=== PATIENT | female | born 1950 | race Caucasian/White ===

== ENCOUNTER 2016-09-09 22:26 | Inpatient (IN) ==
--- NOTE | 2016-09-09 22:48 | Emergency Department Note ---
START Narrative - START START: I examined this patient and my medical decision-making was reviewed with the BUS AND TROLLEY INSPECTING DISPATCHER/PA/Advanced Practice Nurse/Resident Physician. I agree with the documented findings, disposition and treatment plan as described except to the extent set forth below. ED attending note: Patient seen with emergency medicine resident Dr. Gregory. Please see a copy of his note for details of the H&P, evaluation, management and disposition of this patient. We independently had [id number] contact with the patient Briefly: 66-year-old female by EMS for altered mental status. Prior CVA with left-sided deficits. Per EMS on July the patient was reported to be "talking out of her head". She has some slurred speech but family is not here is unclear that dysarthria is baseline from prior CVA. Patient will get a CT scan lab work EKG. Disposition pending. Patient stable.
[2016-09-09 23:00] LABS: Basophils % 0.7 %; Hematocrit 39.5 % (35.3-44.9); Hemoglobin 12.6 g/dL (11.5-15.4); Immature Granulocytes % 0.7 % (0-4); Lymphocytes # 0.6 K/mcL (0.6-4.6); Lymphocytes % 13.6 %; Mean Corpuscular HGB Conc 31.9 g/dL (31.6-35.5); Mean Corpuscular Hemoglobin 28.7 pg (28.0-33.3); Mean Platelet Volume 9.9 fL (9.4-12.4); Monocytes # 0.6 K/mcL (0.0-1.3); Monocytes % 13.4 %; Neutrophils # 2.9 K/mcL (1.6-8.9); Platelet Count 215 K/mcL (140-400); Red Blood Count 4.39 M/mcL (3.82-4.97); Red Cell Distribution Width 13.4 % (11.5-14.5); Segmented Neutrophils % 71.6 %
[2016-09-09 23:09] LABS: INR 1.3; Prothrombin Time 14.2 Seconds (9.4-12.1)
[2016-09-09 23:15] LABS: Alanine Aminotransferase 8 Units/L (0-55); Albumin 3.1 g/dL (3.5-5.0); Albumin/Globulin Ratio 0.9 (1.1-2.2); Alkaline Phosphatase 59 Units/L (38-126); Aspartate Amino Transferase 22 Units/L (5-34); BUN/Creatinine Ratio 10 (6-26); Bilirubin,Direct 0.1 mg/dL (0.0-0.5); Bilirubin,Indirect 0.4 mg/dL (0.0-1.2); Bilirubin,Total 0.5 mg/dL (0.2-1.2); Blood Urea Nitrogen 30 mg/dL (7-20); Calcium 9.5 mg/dL (8.6-10.8); Carbon Dioxide 14 mEq/L (19-29); Chloride 104 mEq/L (98-109); Ethanol < 10 mg/dL (0-10); Globulin 3.6 g/dL (2.4-3.5); Glucose 104 mg/dL (70-99); Osmolality,Calculated 292 (280-300); Potassium 3.7 mEq/L (3.5-4.5); Sodium 138 mEq/L (136-145); Total Protein 6.7 g/dL (6.0-8.3); eGFR For African Americans 19 (> 60); eGFR For Non-African Americans 16 (> 60)
[2016-09-09] MEDS ORDERED: 0.9 % Sodium Chloride 1,000 ML IV ONE (23:26)
[2016-09-10] MEDS ORDERED: Vancomycin 1,000 MG in D5% in Water 250 ML IV ONE (00:02)
[2016-09-10] MEDS ORDERED: Piperacillin/Tazobactam 3.375 GM in D5% in Water (Mini-Bag+) 100 ML IVPB ONE (00:02)
--- NOTE | 2016-09-10 00:17 | Emergency Department Note ---
Disposition Clinical Impression: Pneumonia Qualifiers: Pneumonia type: due to unspecified organism Laterality: unspecified laterality Lung location: unspecified part of lung Qualified Code(s): J18.9 - Pneumonia, unspecified organism Disposition: Admitted As Inpatient Condition: Fair Altered Mental Status HPI - General Chief Complaint: ED Altered Mental Status Stated Complaint: AMS Source: EMS Limitations: altered mental status Nursing Notes Reviewed: Yes Vital Signs Reviewed: Yes - History of Present Illness HPI Narrative: Patient here for evaluation of altered mental status. Patient sent in for "talking out of her head". Patient smells of urine on exam. Patient able to give her name and that she is in the hospital however she has had a previous left-sided stroke that has left her with left-sided deficits as well as speech deficits. - Related Data Home Medications Medication Instructions Recorded Confirmed Albuterol Sulfate [Albuterol 2 puff IH Q4HR PRN 08/22/16 08/22/16 Inhaler] Alprazolam [Xanax 0.5 MG Tablet] 0.5 mg PO TID PRN 08/22/16 08/22/16 Aspirin [Lo-Dose Aspirin EC] 81 mg PO DAILY 08/22/16 08/22/16 Diclofenac Sodium [Voltaren] 1 appl TP TID PRN 08/22/16 08/22/16 Docusate [Colace] 100 mg PO BID PRN 08/22/16 08/22/16 Gabapentin [Neurontin] 300 mg PO HS 08/22/16 08/22/16 Omeprazole [PriLOSEC] 40 mg PO DAILY 08/22/16 08/22/16 OxyCODONE ER (12 HR) [OxyCONTIN] 5 mg PO Q12HR PRN 08/22/16 08/22/16 Venlafaxine HCl 100 mg PO BID 08/22/16 08/22/16 Previous Rx's Medication Instructions Recorded Lidocaine Patch [Lidoderm 5% patch] 1 each TP DAILY #10 adh..patch 08/25/16 Sennosides/Docusate Sodium [Senna 2 each PO BID #60 tablet 08/25/16 Plus] Allergies Allergy/AdvReac Type Severity Reaction Status Date / Time No Known Allergies Allergy Verified 06/22/16 02:12 Limitations: ROS unobtainable due to patients medical condition Past Medical History - Past Medical History Medical history: Reports: COPD, CVA, fibromyalgia, other Psychiatric history: Reports: anxiety, depression, panic disorder - Social History Smoking Status: Current every day smoker Smokeless Tobacco Status: No Alcohol use: Reports: none Drug use: Reports: none Physical Exam - General Limitations: altered mental status General appearance: other - Head Head exam: atraumatic, normocephalic - Eye Eye exam: Present: normal appearance - ENT ENT exam: normal exam, mucous membranes dry - Neck Neck exam: Present: normal inspection - Chest Chest inspection: Present: normal inspection, symmetric chest wall rise. Absent : tenderness - Respiratory Respiratory exam: Present: other (Rhonchi diffuse.). Absent: respiratory distress - Cardiovascular Cardiovascular exam: Present: normal rhythm, tachycardia - Abdominal Exam Abdominal exam: Present: soft, Non-Tender - Extremities Exam Extremities exam: Present: normal inspection, other (Left-sided deficits consistent with previous stroke) - Back Exam Back exam: Present: normal inspection - Neurological Exam Neurological exam: Present: motor sensory deficit (Left-sided deficits) Course - Reevaluation(s) Reevaluation #1: Patient has low blood pressures. Patient mentating has been unchanged however she continues to have tachycardia patient's 18-gauge IV in the right upper extremity is going slow due to her dropping complaint with keeping her arm straight. A second IV was attempted as well as blood work including a lactate however due to the patient's poor access needle was obtained. Verbal consent obtained for central venous catheter. Central venous catheter placed per procedure note. - Consultations Consultation #1: Discussed with hospitalist. Dr. WILKINSON accepts. Consultation #2: Sign out given to medicine resident. Vital Signs Temperature 98.9 F 09/09/16 22:27 Pulse Rate 117 09/09/16 22:27 Respiratory Rate 26 09/09/16 22:27 Blood Pressure 103/96 09/09/16 22:27 O2 Sat by Pulse Oximetry 87 L 09/09/16 22:27 Temperature 98.9 F 09/09/16 22:27 Pulse Rate 131 09/10/16 03:13 Respiratory Rate 12 09/10/16 03:13 Blood Pressure 120/40 09/10/16 03:13 O2 Sat by Pulse Oximetry 99 09/10/16 03:13 Oxygen Delivery Oxygen Delivery Ventilator Procedures - Central Line Placement Right IJ Central Line Inserted*: Yes Central Line Insertion: emergent Consent Obtained: verbal consent Procedural Pause: verify patient name and date of , timeout performed per policy, kalyan and assess the site, assemble equipment and verify supplies, perform hand hygiene Patient Placed on Monitor/Pulse Ox: Yes During the Procedure: clinician is wearing sterile gloves, cap, mask,& gown during insertion, sterile field and sterile technique are maintained, patient's face is covered with drape or mask and wearing a cap, everyone in room is wearing a mask Central Line Prep: Chlorhexidine scrub Prep the Procedure Site: apply chloraprep to the skin using a back and forth scrubbing motion, apply chloraprep for 30 seconds (upper body), 1-2 min ( femoral sites), allow prep to dry, drape the patient with a full body drape Local Anesthetic: lidocaine 1% Ultrasound Used for Placement: Yes Central Line Lumen Inserted: triple Post Procedure: sutured in place, good blood return, all ports aspirated, flushed, capped, sterile dressing applied, guide wire removed and visualized, dressing is dated Post Procedure X-Ray: tip of catheter in good position, no pneumothorax seen Patient Tolerated Procedure: well Complications: none - Intubation Time out performed: Yes sedative: Etomidate Mg Given: 20 paralytic: Rocuronium Mg Given: 100 Laryngoscope: fiber optic video scope ET Tube Size: 7.5 ET Tube Uncuffed: No Tube Secured Depth (cm): 22 Tube Secured Location: lips Tube Placement Confirmation: visualized tube passing through cords, equal breath sounds bilaterally, no breath sounds over epigastrium, confirmation by capnometry Patient Tolerated Procedure: well Intubation Complications: none Altered Mental Status - Medical Records Medical records reviewed: Yes I reviewed the patient's medical records. - Lab Data Lab results reviewed: Yes I reviewed the patient's lab results. Result diagrams: 09/09/16 22:51 09/09/16 22:51 Lab Results 09/09/16 09/09/16 09/09/16 Range/Units 22:37 22:51 22:51 WBC 4.1 L (4.3-11.1) K/mcL RBC 4.39 (3.82-4.97) M/mcL Hgb 12.6 (11.5-15.4) g/dL Hct 39.5 (35.3-44.9) % MCV 90.0 (83.0-100.0) fL MCH 28.7 (28.0-33.3) pg MCHC 31.9 (31.6-35.5) g/dL RDW 13.4 (11.5-14.5) % Plt Count 215 (140-400) K/mcL MPV 9.9 (9.4-12.4) fL Immature Gran % 0.7 (0-4) % Seg Neutrophils % 71.6 % Lymphocytes % 13.6 % Monocytes % 13.4 % Eosinophils % 0.0 % Basophils % 0.7 % Neutrophils # 2.9 (1.6-8.9) K/mcL Lymphocytes # 0.6 (0.6-4.6) K/mcL Monocytes # 0.6 (0.0-1.3) K/mcL Eosinophils # 0.0 (0.0-0.6) K/mcL Basophils # 0.0 (0.0-0.2) K/mcL PT 14.2 H (9.4-12.1) Seconds INR 1.3 Sodium (136-145) mEq/L Potassium (3.5-4.5) mEq/L Chloride (98-109) mEq/L Carbon Dioxide (19-29) mEq/L BUN (7-20) mg/dL Creatinine (0.57-1.11) mg/dL Est GFR ( Amer) (> 60) Est GFR (Non-Af Amer) (> 60) BUN/Creatinine Ratio (6-26) Glucose (70-99) mg/dL POC Glucose 103 H (58-89) Calculated Osmolality (280-300) Calcium (8.6-10.8) mg/dL Total Bilirubin (0.2-1.2) mg/dL Direct Bilirubin (0.0-0.5) mg/dL Indirect Bilirubin (0.0-1.2) mg/dL AST (5-34) Units/L ALT (0-55) Units/L Alkaline Phosphatase (38-126) Units/L Troponin I (0-0.03) ng/mL Serum Total Protein (6.0-8.3) g/dL Albumin (3.5-5.0) g/dL Globulin (2.4-3.5) g/dL Albumin/Globulin Ratio (1.1-2.2) Ethyl Alcohol (0-10) mg/dL 09/09/16 09/09/16 Range/Units 22:51 22:51 WBC (4.3-11.1) K/mcL RBC (3.82-4.97) M/mcL Hgb (11.5-15.4) g/dL Hct (35.3-44.9) % MCV (83.0-100.0) fL MCH (28.0-33.3) pg MCHC (31.6-35.5) g/dL RDW (11.5-14.5) % Plt Count (140-400) K/mcL MPV (9.4-12.4) fL Immature Gran % (0-4) % Seg Neutrophils % % Lymphocytes % % Monocytes % % Eosinophils % % Basophils % % Neutrophils # (1.6-8.9) K/mcL Lymphocytes # (0.6-4.6) K/mcL Monocytes # (0.0-1.3) K/mcL Eosinophils # (0.0-0.6) K/mcL Basophils # (0.0-0.2) K/mcL PT (9.4-12.1) Seconds INR Sodium 138 (136-145) mEq/L Potassium 3.7 (3.5-4.5) mEq/L Chloride 104 (98-109) mEq/L Carbon Dioxide 14 L (19-29) mEq/L BUN 30 H (7-20) mg/dL Creatinine 3.01 H (0.57-1.11) mg/dL Est GFR ( Amer) 19 L (> 60) Est GFR (Non-Af Amer) 16 L (> 60) BUN/Creatinine Ratio 10 (6-26) Glucose 104 H (70-99) mg/dL POC Glucose (58-89) Calculated Osmolality 292 (280-300) Calcium 9.5 (8.6-10.8) mg/dL Total Bilirubin 0.5 (0.2-1.2) mg/dL Direct Bilirubin 0.1 (0.0-0.5) mg/dL Indirect Bilirubin 0.4 (0.0-1.2) mg/dL AST 22 (5-34) Units/L ALT 8 (0-55) Units/L Alkaline Phosphatase 59 (38-126) Units/L Troponin I 0.04 H* (0-0.03) ng/mL Serum Total Protein 6.7 (6.0-8.3) g/dL Albumin 3.1 L (3.5-5.0) g/dL Globulin 3.6 H (2.4-3.5) g/dL Albumin/Globulin Ratio 0.9 L (1.1-2.2) Ethyl Alcohol < 10 (0-10) mg/dL - Radiology Data Radiology results reviewed: Yes I reviewed the patient's radiology results. - EKG Data EKG attestation: Yes I reviewed and interpreted this EKG. EKG results narrative: EKG shows sinus tachycardia with nonspecific ST segment and T-wave changes. Patient has T-wave inversion and mild T-wave depression in the anterior leads. T-wave flattening and inversions consistent with 08/22/16. TPA Checklist - LKW: 3-4.5 hrs Add. Contraindications Patient/family understanding: The patient/family members have been counseled and understood the risk, benefit , and alternatives of treatment.
[2016-09-10] MEDS ORDERED: 0.9 % Sodium Chloride 1,000 ML IV ONE (00:41)
[2016-09-10] MEDS ORDERED: 0.9 % Sodium Chloride 1,000 ML ONE (00:41)
[2016-09-10] MEDS ORDERED: Levofloxacin 750 MG/150 ML 750 MG/150 ML BAG IVPB SCH (01:00)
--- NOTE | 2016-09-10 01:32 | Internal Med History&Physical ---
Date of Encounter: 09/10/16 Time of Encounter: 01:30 Assessment and Plan (1) Severe sepsis Current visit: Yes Status: Acute The patient meets SIRS criteria with tachycardia and tachypnea. Source is pneumonia. Severe sepsis with lactate of 4.3 and evidence of renal injury with creatinine of 3.01 when the patient had normal renal function at her baseline. 2L fluid given in the ED. Blood cultures drawn. Additional liter of fluid ordered and maintenance fluid at 150ml/hr after that. Timed repeat lactic acid at 4AM. Patient was started on levofloxacin by the ED, which has been discontinued. Azithromycin and Zosyn for antibiotic coverage. The patient was reassessed in the ED and found to be declining, she was started on Levophed, then intubated by the emergency department staff and moved to the ICU. (2) Altered mental status Current visit: Yes Status: Acute Secondary to infection and severe sepsis. See plan above. Qualifiers: Altered mental status type: unspecified Qualified Code(s): R41.82 - Altered mental status, unspecified (3) Pneumonia Current visit: Yes Status: Acute Patient was intubated. Continue Azithromycin and Zosyn. Possible aspiration pneumonia with chest XR demonstrating findings suspicious for right mid to lower lung pneumonia and patient's dysarthria, unknown if patient has dysphagia. Consideration for speech therapy consult when the patient is extubated. Qualifiers: Pneumonia type: due to unspecified organism Laterality: right Lung location: middle lobe of lung Qualified Code(s): J18.9 - Pneumonia, unspecified organism (4) COPD (chronic obstructive pulmonary disease) Current visit: No Status: Chronic In acute exacerbation with hypoxia secondary to pneumonia. Likely bacterial pneumonia. The patient in intubated and on antibiotics. Qualifiers: COPD type: COPD with acute exacerbation Qualified Code(s): J44.1 - Chronic obstructive pulmonary disease with (acute) exacerbation (5) Acute kidney injury Current visit: No Status: Resolved Secondary to severe sepsis. Patient has been given 2L fluid with an additional liter ordered and maintenance fluids of 125ml/hr. Continue to monitor. (6) DVT prophylaxis Current visit: Yes Status: Acute Heparin SQ Q8hr (7) History of CVA (cerebrovascular accident) Current visit: Yes Status: Acute CT of the head shows a stable exam with no acute intracranial abnormality. Residual left sided weakness and disarthria from previous infarct. Internal Medicine - H&P: HPI Chief complaint: altered mental status Admitted From: Emergency Dept Plans for Post Hospital Care: Home History of present illness: Ms. Brower is a 66 year old female with PMH of previous CVA, COPD, fibromyalgia, anxiety, depression, and panic disorder who presented to the emergency department for AMS. This patient lives at home with family and has had a recent hospitalization at the end of July that was for a fall and possible fractures. Her history of CVA has left her with residual left sided weakness and causes her to have frequent falls. Family members called today due to the patient appearing altered and not herself. Family members were not present to obtain additional history from. The patient herself is very limited in the questions she is able to answer. In the emergency department the patient was given 2L of fluids as she was hypotensive at 62/35, her pressure responded to fluids and lida to 91/42 and a central line was placed due to poor peripheral access. The patient was becoming hypoxic on nasal canula at 87% with 6L and was subsequently put on a nonrebreather mask with response to 92%. After central line placement the patient began to decline again and was started on Levophed with response in her blood pressure to 104/65. Heat CT did not show any acute findings and chest XR demonstrated findings suspicious for right mid to lower lung pneumonia. The patient was able to state her name and that she was at [facility], but she did not know what day it was. She had some dysarthria presumed to be from her previous CVA. Past Med Surg Social Fam HX - Past Medical History Medical history: COPD, CVA, fibromyalgia, other Psychiatric history: anxiety, depression, panic disorder - Past Surgical History Surgical History: non-contributory - Social History Smoking Status: Current every day smoker Smokeless Tobacco Status: No Alcohol use: none Drug use: none - Family History Mother Living Status: Still Living Father Living Status: Internal Medicine - H&P: Meds Albuterol Sulfate [Albuterol Inhaler] 2 puff IH Q4HR PRN 08/22/16 [History] Alprazolam [Xanax 0.5 MG Tablet] 0.5 mg PO TID PRN 08/22/16 [History] Aspirin [Lo-Dose Aspirin EC] 81 mg PO DAILY 08/22/16 [History] Diclofenac Sodium [Voltaren] 1 appl TP TID PRN 08/22/16 [History] Docusate [Colace] 100 mg PO BID PRN 08/22/16 [History] Gabapentin [Neurontin] 300 mg PO HS 08/22/16 [History] Omeprazole [PriLOSEC] 40 mg PO DAILY 08/22/16 [History] OxyCODONE ER (12 HR) [OxyCONTIN] 5 mg PO Q12HR PRN 08/22/16 [History] Venlafaxine HCl 100 mg PO BID 08/22/16 [History] Lidocaine Patch [Lidoderm 5% patch] 1 each TP DAILY #10 adh..patch 08/25/16 [Rx] Sennosides/Docusate Sodium [Senna Plus] 2 each PO BID #60 tablet 08/25/16 [Rx] Allergies No Known Allergies Allergy (Verified 06/22/16 02:12) ROS unobtainable: due to mental status All Systems PM: A 10-system review of systems was performed and is negative for pertinent findings except as documented above in the HPI. - Constitutional Vitals: Temp Pulse Resp BP Pulse Ox 98.9 F 110 20 62/35 87 L 09/09/16 22:27 09/10/16 00:19 09/10/16 00:19 09/10/16 00:19 09/10/16 00:19 General appearance: Present: A&O X 2 (To person and place), severe distress - Head Head exam: Present: atraumatic, normocephalic - Eye Eye exam: Present: PERRL, conjuntiva pink, sclera anicteric Pupils: Present: PERRL - Neck Neck exam general surgery: Present: supple, trachea midline. Absent: lymphadenopathy Additional comments: Central line in place on the right. - Respiratory Respiratory exam: Present: rales (profound), rhonchi, tachypnea. Absent: accessory muscle use, wheezes - Cardiovascular Cardiovascular exam: Present: +S1, +S2, tachycardia. Absent: diastolic murmur, gallop, rubs, systolic murmur - GI/Abdominal GI/Abdominal exam: Present: normal bowel sounds, soft, no peritoneal signs. Absent: distended, tenderness - Extremities Exam Extremities exam: Present: warm, radial pulses palpable and symetrical. Absent : calf tenderness, cyanotic, pedal edema - Neurological Exam Neurological exam: Present: alert, CN II-XII intact, speech deficit (dysarthria) . Absent: facial droop Additional comments: The patient has 0/5 strength in the left upper extremity and 3/5 strength in the left lower extremity. Strength is 5/5 in the right upper and right lower extremities. - Skin Skin exam: Present: dry, intact Internal Med - H&P Results - Labs CBC & Chem 7: 09/09/16 22:51 09/09/16 22:51 - Attending Attestation I examined this patient and my medical decision-making was reviewed with the TOLL RELIEF OPERATOR/PA/Advanced Practice Nurse/Resident Physician. I agree with the documented findings, disposition and treatment plan as described except to the extent set forth below.
[2016-09-10 01:45] LABS: Bilirubin,Urine Moderate (Negative); Blood,Urine Small (Negative); Clarity,Urine Turbid (Clear); Glucose,Urine (UA) Normal (Normal); Ketones,Urine Trace mg/dL (Negative); Leukocyte Esterase,Urine Large (Negative); Nitrite,Urine Negative (Negative); Protein,Urine 100 mg/dL (Neg-Trace); Specific Gravity,Urine 1.023 (1.010-1.025); Urobilinogen,Urine Normal (Normal)
[2016-09-10 01:47] LABS: Squamous Epithelial Cell,Urine Many per lpf (None-Few); WBC,Urine TNTC per hpf (0-3)
[2016-09-10 01:50] LABS: Color,Urine Amber (Yellow)
[2016-09-10 01:51] LABS: Amphetamine Screen,Urine Negative ng/mL (Cutoff=1000); Barbiturate Screen,Urine Negative ng/mL (Cutoff=200); Benzodiazepines Screen,Urine Positive ng/mL (Cutoff=200); Cannabinoid Screen,Urine Negative ng/mL (Cutoff = 50); Cocaine Screen,Urine Negative ng/mL (Cutoff= 300); Opiate Screen,Urine Negative ng/mL (Cutoff=300); Phencyclidine Screen,Urine Negative ng/mL (Cutoff=25)
[2016-09-10 01:59] LABS: Bacteria,Urine Moderate per hpf (None-Few); Hyaline Casts,Urine None Seen per lpf (None-Few); Mucus,Urine Moderate (Few); Renal Epithelial Cells,Urine Few per hpf (None-Few); Yeast,Urine Many per hpf (None Seen)
[2016-09-10] MEDS ORDERED: Norepinephrine 4 MG in D5% in Water 250 ML IVC SCH (02:00)
[2016-09-10] MEDS ORDERED: Naloxone 0.4 MG/ML INJ IVP PRN (02:32)
[2016-09-10] MEDS ORDERED: 0.9 % Sodium Chloride 1,000 ML IVC ONE (02:32)
[2016-09-10] MEDS ORDERED: ALPRAZolam 0.5 MG TABLET PO PRN (02:34)
[2016-09-10] MEDS ORDERED: 0.9 % Sodium Chloride 1,000 ML IVC SCH (02:45)
[2016-09-10] MEDS ORDERED: Propofol 500 MG/50 ML INFUS..BTL ONE (02:48)
[2016-09-10] MEDS: 0.9 % Sodium Chloride 1,000 ML IVC SCH ×4 (04:42→21:24)
[2016-09-10] MEDS: Azithromycin 500 MG in D5% in Water 250 ML IVPB SCH (04:45)
[2016-09-10] MEDS ORDERED: Phenylephrine 10 MG in D5% in Water 250 ML IVC SCH (06:15)
[2016-09-10 06:57] LABS: ABG Base Excess -13.3 mEq/L (-2.0 to 3.0); ABG HCO3 12.9 mEQ/L (21-27); ABG Oxygen Saturation 91 % (95-98); ABG PCO2 30 mmHg (35-45); ABG PH 7.24 pH Units (7.32-7.45); ABG PO2 73 mmHg (85-104); ABG TCO2 13.8 mEq/L (20-26); Blood Gas FiO2 100 %
[2016-09-10] MEDS ORDERED: 0.9 % Sodium Chloride 500 ML ONE (07:03)
[2016-09-10] MEDS: *HR* Heparin 5,000 UNIT/ML VIAL SQ SCH ×3 (07:22→22:02)
[2016-09-10] MEDS ORDERED: Clindamycin 600 MG/50 ML 600 MG/50 ML IV.SOLN IVPB SCH (08:00)
[2016-09-10] MEDS ORDERED: *HR* Etomidate 20 MG/10 ML AMPUL IVP ONE (08:07)
[2016-09-10] MEDS ORDERED: *HR* Rocuronium Bromide 100 MG/10 ML VIAL IVC ONE (08:07)
[2016-09-10] MEDS: Vasopressin 20 UNIT in 0.9 % Sodium Chloride 50 ML IVC SCH ×2 (08:12→15:36)
[2016-09-10] MEDS: Phenylephrine 50 MG in D5% in Water 250 ML IVC SCH (08:36)
[2016-09-10] MEDS ORDERED: *HR* Vecuronium 10 MG VIAL IVP ONE (09:12)
[2016-09-10] MEDS ORDERED: *HR* Vecuronium 10 MG VIAL ONE (09:18)
[2016-09-10] MEDS: Norepinephrine 8 MG in D5% in Water 250 ML IVC SCH ×3 (09:34→13:47)
[2016-09-10] MEDS: Pantoprazole 40 MG VIAL IVP SCH (09:50)
[2016-09-10] MEDS: Chlorhexidine Rinse 15 ML MOUTHWASH MM SCH ×2 (09:50→19:38)
[2016-09-10] MEDS: FentaNYL (PF) 1,000 MCG in 0.9 % Sodium Chloride 80 ML IVC SCH (09:51)
[2016-09-10] MEDS ORDERED: Piperacillin/Tazobactam 3.375 GM in D5% in Water (Mini-Bag+) 100 ML IVPB SCH (10:00)
--- NOTE | 2016-09-10 10:01 | Pulmonology Consult Note ---
Addendum entered and electronically signed by Donn Torres DO 11:07: A/P addition: Acute Respiratory Distress Syndrome. Continue per plan in Septic Shock and Acute Respiratory Failure plans. Addendum entered and electronically signed by Kenji Mckeon MD 09/11/16 07:30: The patient was seen and examined with the house staff on 09/10/16. I agree with the resident note with the following addendum: 1. Acute respiratory failure 2. Septic shock 3. Acute renal failure 4. Pneumonia 5. ARDS 66-year-old white female with a medical history significant for prior stroke, COPD, depression, and fibromyalgia who presents with acute respiratory failure due to ARDS and septic shock due to pneumonia. ARDS may be due influenza or aspiration event (family reported witnessed episode of aspirating vomit). We have had a very difficult time with oxygenation. Continue full vent support with high PEEP and low tidal volume strategy (goal of 6 mL/kg of ideal body weight tidal volumes). We have initiated continuous paralytics. No pronator bed available and patient has been too unstable for transfer to a facility with pronator bed capability. Septic shock secondary to pneumonia. She is influenza type B positive. This may be pneumonia secondary to influenze +/- bacerial superinfection and aspiration. She has been adequately volume resuscitated. Titrate vasopressors for a goal mean arterial pressure of 65 mmHg. I have added vasopressin and stress dose steroids. Continue Zosyn for coverage of pneumonia. Given he severity of her illness and the concern for superimposed bacerial infection, I have given her a 1 time dose of Vancomycin, which can be continued if MRSA nasal probe and sputum cultures are positive for MRSA. Follow cultures. Trend lactate. Acute renal failure due to ATN/hypoperfusion from septic shock. She has been anuric since arrival. No current indications for hemodialysis, however if she does not respond to a challenge with IV sodium bicarbonate, she may need dialysis for acidosis. Impending volume overload is also of concern I have consult nephrology for further evaluation. I discussed with the family at bedside. She is a DNR CCA. Overall prognosis guarded. Original Note: Date of Encounter: 09/10/16 Time of Encounter: 09:55 Assessment and Plan (1) Septic shock Current Visit: Yes Status: Acute Patient with tachycardia, tachypnea, lactate of 3.3, Cr 3.01, and hypotension despite continuous pressors and adequate fluid resuscitation. Likely secondary to pneumonia and influenza positive. Cultures sent. Continue with pressors and stress dose steroids. Continue with antibiotics. (2) Acute respiratory failure with hypoxia Current Visit: Yes Status: Acute Likely secondary to pneumonia secondary to influenza infection over bacterial infection in the setting of history of COPD. Continue per plan in assessment above. (3) Acute kidney injury Current Visit: Yes Status: Acute Cr of 3.01. Patient has not had output of urine. LIZ likely due to hypoperfusion from septic shock. Continue fluids. Nephrology consulted. (4) Altered mental status Current Visit: Yes Status: Acute Patient presented with altered mental status likely secondary to acute respiratory failure and septic shock. Head CT negative for acute intracranial abnormalities. Continue per plan in assessments above. Qualifiers: Altered mental status type: unspecified Qualified Code(s): R41.82 - Altered mental status, unspecified (5) DVT prophylaxis Current Visit: Yes Status: Acute heparin for dvt ppx History of Present Illness Consult date: 09/10/16 Requesting physician: Donnie Leija Reason for consult: other (acute hypoxic resp failure, lobar pna, ventilator management) Chief complaint: Altered mental status History of present illness: Ms. Brower is a 66 year old female with medical history including COPD, previous CVA with residual left sided weakness, fibromyalgia, anxiety, and depression who presented to the ED for AMS per family members. In the ED patient was hypotensive and was therefore given bolus of fluids and central line placed due to poor peripheral access. Patient was also hypoxic on nasal cannula and placed on nonrebreather mask. Patient continued to be hypoxic and with a declining bp, therefore patient was intubated. Head CT was negative for acute intracranial abnormalities and CXR revealed findings suspicious for right mid to lower lung pneumonia. Patient was admitted to the ICU for management of ventilator settings, acute respiratory failure, and lobar pneumonia. Past Med Surg Social Fam HX - Past Medical History Medical history: COPD, CVA (residual L weakness), fibromyalgia Psychiatric history: anxiety, depression, panic disorder - Past Surgical History Surgical History: non-contributory - Social History Smoking Status: Current every day smoker Smokeless Tobacco Status: No Alcohol use: none Drug use: none - Family History Mother Living Status: Still Living Father Living Status: Medications and Allergies Albuterol Sulfate [Albuterol Inhaler] 2 puff IH Q4HR PRN 08/22/16 [History] Alprazolam [Xanax 0.5 MG Tablet] 0.5 mg PO TID PRN 08/22/16 [History] Aspirin [Lo-Dose Aspirin EC] 81 mg PO DAILY 08/22/16 [History] Diclofenac Sodium [Voltaren] 1 appl TP TID PRN 08/22/16 [History] Docusate [Colace] 100 mg PO BID PRN 08/22/16 [History] Gabapentin [Neurontin] 300 mg PO HS 08/22/16 [History] Omeprazole [PriLOSEC] 40 mg PO DAILY 08/22/16 [History] OxyCODONE ER (12 HR) [OxyCONTIN] 5 mg PO Q12HR PRN 08/22/16 [History] Venlafaxine HCl 100 mg PO BID 08/22/16 [History] Lidocaine Patch [Lidoderm 5% patch] 1 each TP DAILY #10 adh..patch 08/25/16 [Rx] Sennosides/Docusate Sodium [Senna Plus] 2 each PO BID #60 tablet 08/25/16 [Rx] Ergocalciferol (VITAMIN D2) [Vitamin D2] 50,000 unit PO QWEEK 09/10/16 [History] Allergies No Known Allergies Allergy (Verified 06/22/16 02:12) ROS unobtainable: due to endotracheal tube, due to mental status All Systems: A 10-system review of systems was performed and is negative for pertinent findings except as documented above in the HPI. Physical Examination Vital Signs: Vital Signs, Last 4 Hours Temp Pulse Resp BP Pulse Ox 09/10/16 09:00 108 26 94/49 85 L 09/10/16 08:00 106 26 70/58 92 L 09/10/16 07:30 98.8 F 09/10/16 07:05 108 09/10/16 07:00 110 27 80/51 92 L 09/10/16 06:37 23 84/65 90 L 09/10/16 06:00 116 24 81/54 86 L General appearance: other (intubated, minimally arousable) Eyes: nonicteric Neck: supple Effort: normal Inspection: normal Auscultation: bilateral: clear Cardiovascular: other (sinus tachycardia) Gastrointestinal: normoactive bowel sounds Integumentary: normal Extremities: no cyanosis Musculoskeletal: no deformities non-focal exam, pupils equal and round, unable to assess due to mental status Ventilator Settings Ventilator Settings: Ventilator Settings, Last 8 Hours Ventilator Mode VC+ Ventilator Mode VC+ Ventilator Mode VC+ Ventilator Mode A/C Ventilator Mode A/C Ventilator Tidal Volume 500 Setting Ventilator Tidal Volume 500 Setting Ventilator Tidal Volume 650 Setting Ventilator Tidal Volume 650 Setting Ventilator Tidal Volume 650 Setting Ventilator Tidal Volume 550 Setting Ventilator Tidal Volume 500 Setting Ventilator Respiratory Rate 12 Setting Ventilator Respiratory Rate 12 Setting Ventilator Respiratory Rate 12 Setting Ventilator Respiratory Rate 12 Setting Ventilator Respiratory Rate 12 Setting Ventilator Respiratory Rate 12 Setting Ventilator Respiratory Rate 12 Setting Actual Respiratory Rate 26 Actual Respiratory Rate 26 Actual Respiratory Rate 27 Actual Respiratory Rate 23 Actual Respiratory Rate 24 Actual Respiratory Rate 22 Positive End Expiratory 10 Pressure Positive End Expiratory 8 Pressure Positive End Expiratory 5 Pressure Positive End Expiratory 3 Pressure Positive End Expiratory 5 Pressure Positive End Expiratory 12 Pressure Positive End Expiratory 5 Pressure Peak Inspiratory Airway 21 Pressure Peak Inspiratory Airway 21 Pressure Peak Inspiratory Airway 24 Pressure Peak Inspiratory Airway 23 Pressure Peak Inspiratory Airway 23 Pressure Peak Inspiratory Airway 20 Pressure Results - Laboratory Findings CBC and BMP: 09/09/16 22:51 09/10/16 11:15 ABG ABG pH 7.24 pH Units (7.32-7.45) L 09/10/16 06:45 ABG pCO2 30 mmHg (35-45) L 09/10/16 06:45 ABG pO2 73 mmHg (85-104) L 09/10/16 06:45 ABG O2 Saturation 91 % (95-98) L 09/10/16 06:45 PT/INR, D-dimer PT 14.2 Seconds (9.4-12.1) H 09/09/16 22:51 Abnormal lab findings: Abnormal lab results WBC 4.1 K/mcL (4.3-11.1) L 09/09/16 22:51 PT 14.2 Seconds (9.4-12.1) H 09/09/16 22:51 ABG pH 7.24 pH Units (7.32-7.45) L 09/10/16 06:45 ABG pCO2 30 mmHg (35-45) L 09/10/16 06:45 ABG pO2 73 mmHg (85-104) L 09/10/16 06:45 ABG HCO3 12.9 mEQ/L (21-27) L 09/10/16 06:45 ABG Total CO2 13.8 mEq/L (20-26) L 09/10/16 06:45 ABG O2 Saturation 91 % (95-98) L 09/10/16 06:45 ABG Base Excess -13.3 mEq/L (-2.0 to 3.0) L 09/10/16 06:45 Carbon Dioxide 14 mEq/L (19-29) L 09/09/16 22:51 BUN 30 mg/dL (7-20) H 09/09/16 22:51 Creatinine 3.01 mg/dL (0.57-1.11) H 09/09/16 22:51 Est GFR ( Amer) 19 (> 60) L 09/09/16 22:51 Est GFR (Non-Af Amer) 16 (> 60) L 09/09/16 22:51 Glucose 104 mg/dL (70-99) H 09/09/16 22:51 POC Glucose 148 (58-89) H 09/10/16 05:54 Lactic Acid 3.3 mmol/L (0.5-2.2) H 09/10/16 04:52 Troponin I 0.05 ng/mL (0-0.03) H* 09/10/16 06:14 Albumin 3.1 g/dL (3.5-5.0) L 09/09/16 22:51 Globulin 3.6 g/dL (2.4-3.5) H 09/09/16 22:51 Albumin/Globulin Ratio 0.9 (1.1-2.2) L 09/09/16 22:51 Urine Color Milagros (Yellow) A 09/10/16 01:35 Urine Clarity Turbid (Clear) A 09/10/16 01:35 Urine Protein 100 mg/dL (Neg-Trace) H 09/10/16 01:35 Urine Ketones Trace mg/dL (Negative) H 09/10/16 01:35 Urine Blood Small (Negative) H 09/10/16 01:35 Urine Bilirubin Moderate (Negative) H 09/10/16 01:35 Ur Leukocyte Esterase Large (Negative) H 09/10/16 01:35 Urine Microscopic RBC 3-5 per hpf (0-3) H 09/10/16 01:35 Urine Microscopic WBC TNTC per hpf (0-3) H 09/10/16 01:35 Ur Squamous Epith Cells Many per lpf (None-Few) H 09/10/16 01:35 Urine Bacteria Moderate per hpf (None-Few) H 09/10/16 01:35 Urine Mucus Moderate (Few) H 09/10/16 01:35 Urine Yeast Many per hpf (None Seen) H 09/10/16 01:35 Ur Culture Indicated? YES (NO) A 09/10/16 01:35 U Benzodiazepines Scrn Positive ng/mL (Nhyazn=507) H 09/10/16 01:35 - Clinical Findings Intake & Output: Intake & Output 09/09/16 09/10/16 09/10/16 23:59 07:59 15:59 Intake Total 1935 / 3935 470 / 470 Output Total 400 / 400 Balance 1535 / 3535 470 / 470 Weight 78.2 kg Consult Discharge Plan - Plan Referrals: NO,PCP [Non-Partnered Physician] -
[2016-09-10] MEDS ORDERED: Dextrose Gel 15 GM PO PRN ×2 (11:02)
[2016-09-10] MEDS ORDERED: D5% in Water 1,000 ML IV PRN (11:02)
[2016-09-10] MEDS ORDERED: *HR* Dextrose 50 % in Water (Syg) 50 ML SYRINGE IVP PRN (11:02)
[2016-09-10 11:44] LABS: Albumin 2.3 g/dL (3.5-5.0); Albumin/Globulin Ratio 0.9 (1.1-2.2); Bilirubin,Total 0.4 mg/dL (0.2-1.2); Calcium 6.9 mg/dL (8.6-10.8); Globulin 2.5 g/dL (2.4-3.5); Phosphorous 3.5 mg/dL (2.3-4.7); Potassium 3.1 mEq/L (3.5-4.5); Total Protein 4.8 g/dL (6.0-8.3)
[2016-09-10] MEDS: Atracurium 250 MG in 0.9 % Sodium Chloride 225 ML IVC SCH ×2 (12:00→12:34)
[2016-09-10] MEDS ORDERED: Lacri-Lube 3.5 GM TUBE BOTH EYES SCH (12:00)
[2016-09-10] MEDS: Hydrocortisone Sodium Succ 100 MG/2 ML VIAL IVP SCH ×2 (12:23→16:10)
[2016-09-10] MEDS: Insulin LISPRO 300 UNITS/3 ML VIAL SQ SCH ×2 (12:24→17:00)
[2016-09-10] MEDS: Piperacillin/Tazobactam 3.375 GM in D5% in Water (Mini-Bag+) 100 ML IVPB SCH (13:02)
--- NOTE | 2016-09-10 13:24 | Electrocardiograph Report ---
[facility] Test Date: 2016-09-09 Pat Name: Le Brower Department: 102 Room: 10 Gender: F [employer] Insurance Agent: [facility] : 1950 Requested By: Samuel Gregory Order Number: [id number] Reading MD: Rashaad Pradhan MD Measurements Intervals [place] Rate: 118 P: 65 LA: 171 QRS: 3 QRSD: 69 T: 76 QT: 366 QTc: 436 Interpretive Statements SINUS TACHYCARDIA ANTEROLATERAL ISCHEMIA Electronically Signed On 09-10-16 13:22:54 EST by Rashaad Pradhan MD
[2016-09-10] MEDS: Sodium Bicarbonate 150 MEQ in D5% in Water 1,000 ML IVC SCH ×2 (14:01→21:24)
--- NOTE | 2016-09-10 14:22 | Procedure Note ---
Date of procedure: 09/10/16 Pre-op diagnosis: shock Post-op diagnosis: same Procedure: Informed consent was assumed secondary to emergent nature of procedure and unable to contact POA. A timeout was performed prior to the procedure. The area of the left radial artery was cleaned and draped. The site was anesthetized with subcutaneous lidocaine. Utilizing ultrasound guidance the artery was cannulated and a wire was passed into the artery. The catheter was advanced into the artery and sutured into place. Good waveform noted on the monitor. A sterile dressing was placed. No untoward events. Anesthesia: local Surgeon: Kenji Mckeon Estimated blood loss (cc): 0 (minimal) Condition: critical
[2016-09-10 14:53] LABS: ABG PCO2 50 mmHg (35-45); ABG PH 7.04 pH Units (7.32-7.45)
[2016-09-10 14:54] LABS: ABG Base Excess -16.9 mEq/L (-2.0 to 3.0); ABG HCO3 13.5 mEQ/L (21-27); ABG Oxygen Saturation 84 % (95-98); ABG PO2 71 mmHg (85-104); Blood Gas FiO2 100 %
[2016-09-10 14:54] LABS: ABG PH 7.05 pH Units (7.32-7.45)
[2016-09-10 14:55] LABS: ABG Base Excess -17.8 mEq/L (-2.0 to 3.0); ABG HCO3 12.2 mEQ/L (21-27); ABG Oxygen Saturation 71 % (95-98); ABG PCO2 44 mmHg (35-45); ABG PO2 55 mmHg (85-104); ABG TCO2 13.6 mEq/L (20-26); Blood Gas FiO2 100 %
--- NOTE | 2016-09-10 14:57 | Nephrology Consult Note ---
Date of Encounter: 09/10/16 Time of Encounter: 13:45 Assessment and Plan (1) Septic shock Current Visit: Yes Status: Acute Patient with tachycardia, tachypnea, lactic acidosis, and hypotension requiring multiple vasopressors. Chest x-ray with right middle lobe pneumonia concerning for aspiration. Patient needs criteria for healthcare associated pneumonia as she was hospitalized at the end of July 2016. Patient also positive for influenza B virus. She is currently requiring multiple vasopressors along with significant ventilatory support. Blood cultures pending, urine culture negative at this time. (2) Acute kidney injury Current Visit: Yes Status: Acute Nonoliguric acute kidney injury in the setting of septic shock. Initial serum creatinine 3.01, current serum creatinine 2.72. Improvement in serum creatinine likely dilutional as patient is 6L +. Urine osmolality, urine sodium, creatinine kinase, uric acid, serum osmolality, and ultrasound of the kidneys have been ordered. Patient is requiring multiple vasopressors to maintain even a marginal blood pressure at this time. Patient at this time is too critically ill even for gentle ultrafiltration. We will continue to monitor patient's urine output as well as repeat labs and discuss with family their wishes for possible dialysis if patients condition slightly improves. (3) HCAP (healthcare-associated pneumonia) Current Visit: Yes Status: Acute Patient with a right middle lobe pneumonia concerning for aspiration as the patient apparently vomited prior to arrival in the emergency department. She does meet criteria for healthcare associated pneumonia as she was hospitalized within the past 90 days. Current antibiotics per ICU team, Zosyn and azithromycin. (4) Acute respiratory failure with hypoxia Current Visit: Yes Status: Acute Patient currently intubated. Vent settings: VC+/400/30/100%/12 Management per ICU team. Consider ultrafiltration if patient's clinical status improves. (5) Metabolic acidosis Current Visit: Yes Status: Acute Patient initially presented with a high anion gap metabolic acidosis in the setting of lactic acidosis. She has since been started on a bicarbonate drip with closure of her anion gap. Continue to trend lactic acid. Possible roly tomorrow if patient's clinical picture improves. (6) Influenza B Current Visit: Yes Status: Acute Tamiflu given per ICU team. (7) Hypokalemia Current Visit: Yes Status: Acute Replete along with magnesium and calcium. (8) Hypomagnesemia Current Visit: Yes Status: Acute (9) Hypocalcemia Current Visit: Yes Status: Acute (10) Renal atrophy, right Current Visit: Yes Status: Acute CT abdomen and pelvis without contrast from May 2016 revealed asymmetric atrophy of the right kidney with cortical defects, and or chronic reflux ischemia or infection. Also noted were multiple calcifications in the right renal parenchyma measuring up to 3 mm as well as 13 mm calcification in the left lower pole. Complete retroperitoneal ultrasound ordered to evaluate kidneys and bladder. History of Present Illness - Reason for Consult Consult date: 09/10/16 Acute Kidney Injury, metabolic acidosis Requesting physician: Kenji Mckeon - History of Present Illness Ms. Brower is a 66-year-old female with a past medical history of COPD, previous CVA with residual left-sided hemiparesis, anxiety, depression, and fibromyalgia who presented to the emergency department with altered mental status per family report. Patient was found to be hypotensive and hypoxic despite IV fluid resuscitation and oxygen therapy and was subsequently intubated and a central venous catheter was placed. Workup in the emergency department revealed a chest x-ray with right middle lobe pneumonia. Negative head CT for acute pathology. Urinalysis with positive leuk esterases and many bacteria consistent with urinary tract infection. Elevated serum creatinine at 3.01. Initial lactic acid of 4.3. Patient has had 150 mL of urine since admission last night. She is requiring multiple vasopressors, sedation, and paralytic at this time. Nephrology has been consulted for acute kidney injury and metabolic acidosis. Patient is unable to provide any medical history due to currently being intubated and sedated. Past Med Surg Social Fam HX - Past Medical History Medical history: COPD, CVA (residual L weakness), fibromyalgia Psychiatric history: anxiety, depression, panic disorder - Past Surgical History Surgical History: non-contributory - Social History Smoking Status: Current every day smoker Smokeless Tobacco Status: No Alcohol use: none Drug use: none - Family History Mother Living Status: Still Living Father Living Status: Medications and Allergies Albuterol Sulfate [Albuterol Inhaler] 2 puff IH Q4HR PRN 08/22/16 [History] Alprazolam [Xanax 0.5 MG Tablet] 0.5 mg PO TID PRN 08/22/16 [History] Aspirin [Lo-Dose Aspirin EC] 81 mg PO DAILY 08/22/16 [History] Diclofenac Sodium [Voltaren] 1 appl TP TID PRN 08/22/16 [History] Docusate [Colace] 100 mg PO BID PRN 08/22/16 [History] Gabapentin [Neurontin] 300 mg PO HS 08/22/16 [History] Omeprazole [PriLOSEC] 40 mg PO DAILY 08/22/16 [History] OxyCODONE ER (12 HR) [OxyCONTIN] 5 mg PO Q12HR PRN 08/22/16 [History] Venlafaxine HCl 100 mg PO BID 08/22/16 [History] Lidocaine Patch [Lidoderm 5% patch] 1 each TP DAILY #10 adh..patch 08/25/16 [Rx] Sennosides/Docusate Sodium [Senna Plus] 2 each PO BID #60 tablet 08/25/16 [Rx] Ergocalciferol (VITAMIN D2) [Vitamin D2] 50,000 unit PO QWEEK 09/10/16 [History] Allergies No Known Allergies Allergy (Verified 06/22/16 02:12) Review of Systems ROS unobtainable: due to endotracheal tube, due to mental status Exam - Vital Signs Vital signs: Initial Vital Signs Temp Pulse Resp BP Pulse Ox 98.9 F 117 26 103/96 87 L 09/09/16 22:27 09/09/16 22:27 09/09/16 22:27 09/09/16 22:27 09/09/16 22:27 Vital Signs - Last 8 Hours Temp Pulse Resp BP Pulse Ox 09/10/16 14:00 113 30 89/55 92 L 09/10/16 13:00 111 30 87/56 88 L 09/10/16 12:00 112 30 103/58 97 09/10/16 11:00 112 30 103/48 94 L 09/10/16 10:00 115 30 110/52 85 L 09/10/16 09:00 108 26 94/49 85 L 09/10/16 08:00 106 26 70/58 92 L 09/10/16 07:30 98.8 F 09/10/16 07:05 108 09/10/16 07:00 110 27 80/51 92 L Intake and Output 09/09/16 09/10/16 09/10/16 23:59 07:59 15:59 Intake Total 1935 / 3935 2706 / 2706 Output Total 400 / 400 Balance 1535 / 3535 2706 / 2706 Intake: IV Fluids 193 / 1935 2706 / 2706 Vancocin 1,000 MG In 250 / 250 Dextrose 5% 250 ML @ 167 mls/hr IV ONCE ONE Rx#: [id number] 0.9 % Sodium Chloride 1, 1000 / 1000 1468 / 1468 000 ML @ 150 mls/hr IVC . Q6H40M [facility] Rx#:[id number] FentaNYL (PF) 1,000 MCG 17 / 17 In 0.9 % Sodium Chloride 80 ML @ 10 MCG/HR 1 mls/ hr IVC CONT [facility] Rx#: [id number] Levophed 8 MG In Dextrose 14 / 14 826 / 826 5% 250 ML @ 2 MCG/MIN 3. 87 mls/hr IVC .CONT [facility] Rx#:[id number] Phenylephrine 50 MG In 101 / 101 260 / 260 Dextrose 5% 250 ML @ 40 MCG/MIN 12.24 mls/hr IVC CONT [facility] Rx#:[id number] Diprivan 1,000 mg In 100 70 / 70 85 / 85 ml @ 5 MCG/KG/MIN 2.381 mls/hr IVC .Q24H [facility] Rx#: [id number] Zithromax 500 mg In 250 / 250 Dextrose 5% 250 ML @ 252 mls/hr IVPB Q24H [facility] Rx#: [id number] Cleocin 600 MG/50 ML 600 50 / 50 mg In 50 ml @ 50 mls/hr IVPB Q8HR [facility] Rx#: [id number] Levaquin 750mg/150 mL 750 150 / 150 mg In 150 ml @ 100 mls/ hr IVPB DAILY [facility] Rx#: [id number] Zosyn 3.375 GM In 100 / 100 Dextrose 5% (Minibag+) 100 ML 100 ML @ 100 mls/ hr IVPB ONCE ONE Rx#: [id number] Output: Catheter 150 / 150 Gastric Drainage 250 / 250 Other: Weight 78.2 kg Patient Weight 09/10/16 23:59 Weight 78.2 kg - General Appearance Exam: General: Patient is currently intubated, sedated, and paralyzed HEENT: Normocephalic atraumatic, pupils are equal round and reactive to light and accommodation, anicteric sclera, tympanic membrane is intact, nares is patent, mucous membranes moist, throat is not injected, no JVD, trachea is midline Cardiovascular: Tachycardic with regular rhythm without murmur Respiratory: Lungs are diminished bilaterally with trace right-sided rhonchi Abdomen: Soft, nondistended, positive bowel sounds in all 4 quadrants Extremities: Warm, dry, no edema Neuro: Unable to assess secondary to patient's mental status Results - Lab Results 09/09/16 22:51 09/10/16 11:15 Most recent lab results ABG pH 7.04 pH Units (7.32-7.45) L* D 09/10/16 09:27 ABG pCO2 50 mmHg (35-45) H D 09/10/16 09:27 ABG pO2 71 mmHg (85-104) L 09/10/16 09:27 ABG HCO3 13.5 mEQ/L (21-27) L 09/10/16 09:27 ABG O2 Saturation 84 % (95-98) L 09/10/16 09:27 Calcium 6.9 mg/dL (8.6-10.8) L D 09/10/16 11:15 Phosphorus 3.5 mg/dL (2.3-4.7) 09/10/16 11:15 Magnesium 1.0 mg/dL (1.6-2.6) L 09/10/16 11:15 Consult Discharge Plan - Plan Referrals: NO,PCP [Non-Partnered Physician] -
[2016-09-10 15:36] LABS: ABG HCO3 16.7 mEQ/L (21-27); ABG Oxygen Saturation 77 % (95-98); ABG PCO2 49 mmHg (35-45); ABG PO2 55 mmHg (85-104); ABG TCO2 18.2 mEq/L (20-26)
[2016-09-10] MEDS ORDERED: Vancomycin 1,000 MG in D5% in Water 250 ML IVPB ONE (15:38)
[2016-09-10 15:39] LABS: ABG PH 7.14 pH Units (7.32-7.45); Blood Gas FiO2 100 %
[2016-09-10] MEDS ORDERED: Magnesium Sulfate 1 GM in D5% in Water 100 ML IVPB ONE (15:45)
[2016-09-10] MEDS ORDERED: Calcium Gluconate 2,000 MG in D5% in Water 100 ML IVPB ONE (15:45)
[2016-09-10] MEDS ORDERED: Potassium Chloride Elixir 20 MEQ/15 ML UDC GTUBE ONE (15:45)
--- NOTE | 2016-09-10 15:46 | Event Note ---
Date of Encounter: 09/10/16 Time of Encounter: 15:39 The patient was seen and examined with the house staff. Care was discussed on multidisciplinary rounds. Full resident note is pending. This will serve as my addendum to the resident note. 1. Acute respiratory failure 2. Septic shock 3. Acute renal failure 4. Pneumonia 5. ARDS 66-year-old white female with a medical history significant for prior stroke, COPD, depression, and fibromyalgia who presents with acute respiratory failure due to ARDS and septic shock due to pneumonia. ARDS may be due influenza or aspiration event (family reported witnessed episode of aspirating vomit). We have had a very difficult time with oxygenation. Continue full vent support with high PEEP and low tidal volume strategy (goal of 6 mL/kg of ideal body weight tidal volumes). We have initiated continuous paralytics. No pronator bed available and patient has been too unstable for transfer to a facility with pronator bed capability. Septic shock secondary to pneumonia. She is influenza type B positive. This may be pneumonia secondary to influenze +/- bacerial superinfection and aspiration. She has been adequately volume resuscitated. Titrate vasopressors for a goal mean arterial pressure of 65 mmHg. I have added vasopressin and stress dose steroids. Continue Zosyn for coverage of pneumonia. Given he severity of her illness and the concern for superimposed bacerial infection, I have given her a 1 time dose of Vancomycin, which can be continued if MRSA nasal probe and sputum cultures are positive for MRSA. Follow cultures. Trend lactate. Acute renal failure due to ATN/hypoperfusion from septic shock. She has been anuric since arrival. No current indications for hemodialysis, however if she does not respond to a challenge with IV sodium bicarbonate, she may need dialysis for acidosis. Impending volume overload is also of concern I have consult nephrology for further evaluation. I discussed with the family at bedside. She is a DNR CCA. Overall prognosis guarded.
[2016-09-10] MEDS: Norepinephrine 16 MG in D5% in Water 500 ML IVC SCH ×2 (16:15→21:07)
[2016-09-10] MEDS: Oseltamivir 6 MG/ML MLS PO SCH (16:24)
[2016-09-10 17:11] LABS: Uric Acid 7.5 mg/dL (2.6-6.0)
[2016-09-11] MEDS: Hydrocortisone Sodium Succ 100 MG/2 ML VIAL IVP SCH ×5 (00:05→22:39)
[2016-09-11] MEDS: Insulin LISPRO 300 UNITS/3 ML VIAL SQ SCH ×2 (00:06→05:42)
[2016-09-11] MEDS: Piperacillin/Tazobactam 3.375 GM in D5% in Water (Mini-Bag+) 100 ML IVPB SCH ×3 (02:08→20:09)
[2016-09-11] MEDS: Norepinephrine 16 MG in D5% in Water 500 ML IVC SCH ×4 (02:08→22:19)
[2016-09-11] MEDS: Vasopressin 20 UNIT in 0.9 % Sodium Chloride 50 ML IVC SCH ×2 (02:48→13:26)
[2016-09-11] MEDS: Azithromycin 500 MG in D5% in Water 250 ML IVPB SCH (02:51)
[2016-09-11] MEDS: 0.9 % Sodium Chloride 1,000 ML IVC SCH ×2 (04:13→07:51)
[2016-09-11 04:34] LABS: Hematocrit 30.9 % (35.3-44.9); Mean Corpuscular HGB Conc 33.7 g/dL (31.6-35.5); Mean Corpuscular Hemoglobin 29.4 pg (28.0-33.3); Mean Corpuscular Volume 87.3 fL (83.0-100.0); Mean Platelet Volume 10.1 fL (9.4-12.4); Platelet Count 116 K/mcL (140-400); Red Blood Count 3.54 M/mcL (3.82-4.97); Red Cell Distribution Width 13.9 % (11.5-14.5)
[2016-09-11 04:37] LABS: Hemoglobin 10.4 g/dL (11.5-15.4)
[2016-09-11 04:44] LABS: Ionized Calcium 0.81 mmol/L (1.15-1.35)
[2016-09-11 04:50] LABS: Calcium 6.3 mg/dL (8.6-10.8); Magnesium 0.9 mg/dL (1.6-2.6); Phosphorous 4.2 mg/dL (2.3-4.7); Potassium 3.7 mEq/L (3.5-4.5); Uric Acid 6.9 mg/dL (2.6-6.0)
[2016-09-11 05:00] LABS: Lymphocytes # 1.9 K/mcL (0.6-4.6); Monocytes # 0.8 K/mcL (0.0-1.3); Neutrophils # 7.6 K/mcL (1.6-8.9); Platelet Estimate Decreased (Normal)
[2016-09-11] MEDS: Sodium Bicarbonate 150 MEQ in D5% in Water 1,000 ML IVC SCH (05:30)
[2016-09-11] MEDS: *HR* Heparin 5,000 UNIT/ML VIAL SQ SCH ×3 (05:40→22:39)
[2016-09-11 06:45] LABS: ABG Base Excess -7.7 mEq/L (-2.0 to 3.0); ABG HCO3 20.1 mEQ/L (21-27); ABG Oxygen Saturation 90 % (95-98); ABG PCO2 49 mmHg (35-45); ABG PH 7.22 pH Units (7.32-7.45); ABG PO2 70 mmHg (85-104); ABG TCO2 21.6 mEq/L (20-26)
[2016-09-11 06:46] LABS: Blood Gas FiO2 100 %
[2016-09-11] MEDS: Phenylephrine 50 MG in D5% in Water 250 ML IVC SCH (06:49)
[2016-09-11] MEDS: Pantoprazole 40 MG VIAL IVP SCH (06:57)
[2016-09-11] MEDS: Chlorhexidine Rinse 15 ML MOUTHWASH MM SCH ×2 (06:57→20:09)
[2016-09-11] MEDS ORDERED: Magnesium Sulfate 2 GM in D5% in Water 100 ML IVPB ONE ×2 (07:13→15:36)
[2016-09-11] MEDS ORDERED: Calcium Gluconate 2,000 MG in D5% in Water 100 ML IVPB ONE ×2 (07:13→15:36)
--- NOTE | 2016-09-11 07:24 | Pulmonology Progress Note ---
Date of Encounter: 09/11/16 Time of Encounter: 07:22 Assessment and Plan (1) Acute respiratory failure with hypoxia Current Visit: Yes Status: Acute Secondary to pneumonia, influenza B infection with possible bacterial infection in setting of history of COPD. Cultures negative to date Continue zosyn d2. Vancomycin due to MRSA positive screening. Azithromycin disontinued. Patient on ventilator. PEEP of 12, FiO2 at 100%, will start to titrate down Continue with stress dose steroids. (2) Septic shock Current Visit: Yes Status: Acute Continue with pressors and plan in assessment above. (3) Acute kidney injury Current Visit: Yes Status: Acute Cr of 2.61, improved from 3.01 yesterday. Urine output 550mL. LIZ likely due to hypoperfusion from septic shock. Fluids held due to volume overload status. Nephrology on board, will initiate dialysis. (4) Acute respiratory distress syndrome Current Visit: Yes Status: Acute (5) Influenza B Current Visit: Yes Status: Acute Tamiflu started. (6) MRSA (methicillin resistant Staphylococcus aureus) carrier Current Visit: Yes Status: Acute Positive MRSA screening. Continue with Vancomycin until cultures return. To discontinue if cultures return MRSA negative. (7) Altered mental status Current Visit: Yes Status: Acute Secondary to acute respiratory failure and septic shock. Continue per assessments above. Qualifiers: Altered mental status type: unspecified Qualified Code(s): R41.82 - Altered mental status, unspecified (8) Hypocalcemia Current Visit: Yes Status: Acute Ionized calcium at 0.81, monitor and replete as needed. (9) Hypomagnesemia Current Visit: Yes Status: Acute Magnesium at 0.9, replete and monitor as needed. (10) Hyperglycemia Current Visit: Yes Status: Acute Persistently elevated blood glucose despite sliding scale. Insulin drip ordered. Hyperglycemia likely secondary to stress dose steroids and other fluids/meds. Will continue to monitor. (11) DVT prophylaxis Current Visit: Yes Status: Acute heparin for dvt ppx. Subjective Principal diagnosis: Acute Resp Failure, Septic shock, acute renal failure Interval history: Patient intubated and sedated. PEEP 12, FiO2 at 100% 1550 mL gastric drainage 550mL urine output no changes in patient status overnight, labs revealed significant electrolyte imbalances and fluid overload status on exam Objective PUL Vital signs: Last Vital Signs Temp 97.8 F 09/11/16 04:27 Pulse 101 09/11/16 07:00 Resp 30 09/11/16 07:00 BP 82/53 09/11/16 07:00 Pulse Ox 95 09/11/16 07:00 General appearance: other (intubated, sedated, no extremity movement when prompted, no eye opening) Eyes: nonicteric Effort: normal Auscultation: bilateral: diminished breath sounds, rales Cardiovascular: regular rate and rhythm Gastrointestinal: absent bowel sounds, soft, non-distended Integumentary: normal Extremities: cool, edema Musculoskeletal: no deformities non-focal exam, pupils equal and round Ventilator Settings Ventilator Settings: Ventilator Settings, Last 8 Hours Ventilator Mode A/C Ventilator Mode A/C Ventilator Mode A/C Ventilator Mode A/C Ventilator Mode A/C Ventilator Mode A/C Ventilator Mode A/C Ventilator Mode A/C Ventilator Mode A/C Ventilator Mode A/C Ventilator Mode A/C Ventilator Mode A/C Ventilator Tidal Volume 400 Setting Ventilator Tidal Volume 400 Setting Ventilator Tidal Volume 400 Setting Ventilator Tidal Volume 400 Setting Ventilator Tidal Volume 400 Setting Ventilator Tidal Volume 400 Setting Ventilator Tidal Volume 400 Setting Ventilator Tidal Volume 400 Setting Ventilator Tidal Volume 400 Setting Ventilator Tidal Volume 400 Setting Ventilator Tidal Volume 400 Setting Ventilator Tidal Volume 400 Setting Ventilator Respiratory Rate 30 Setting Ventilator Respiratory Rate 30 Setting Ventilator Respiratory Rate 30 Setting Ventilator Respiratory Rate 30 Setting Ventilator Respiratory Rate 30 Setting Ventilator Respiratory Rate 30 Setting Ventilator Respiratory Rate 30 Setting Ventilator Respiratory Rate 30 Setting Ventilator Respiratory Rate 30 Setting Ventilator Respiratory Rate 30 Setting Ventilator Respiratory Rate 30 Setting Ventilator Respiratory Rate 30 Setting Actual Respiratory Rate 30 Actual Respiratory Rate 30 Actual Respiratory Rate 30 Actual Respiratory Rate 30 Positive End Expiratory 12 Pressure Positive End Expiratory 12 Pressure Positive End Expiratory 12 Pressure Positive End Expiratory 12 Pressure Positive End Expiratory 12 Pressure Positive End Expiratory 12 Pressure Positive End Expiratory 12 Pressure Positive End Expiratory 12 Pressure Positive End Expiratory 12 Pressure Positive End Expiratory 12 Pressure Positive End Expiratory 12 Pressure Positive End Expiratory 12 Pressure Peak Inspiratory Airway 28 Pressure Peak Inspiratory Airway 28 Pressure Peak Inspiratory Airway 28 Pressure Peak Inspiratory Airway 27 Pressure Results - Laboratory Findings CBC and BMP: 09/11/16 04:17 09/11/16 04:17 ABG ABG pH 7.22 pH Units (7.32-7.45) L 09/11/16 04:49 ABG pCO2 49 mmHg (35-45) H 09/11/16 04:49 ABG pO2 70 mmHg (85-104) L 09/11/16 04:49 ABG O2 Saturation 90 % (95-98) L 09/11/16 04:49 PT/INR, D-dimer PT 14.2 Seconds (9.4-12.1) H 09/09/16 22:51 Abnormal lab findings: Abnormal lab results RBC 3.54 M/mcL (3.82-4.97) L 09/11/16 04:17 Hgb 10.4 g/dL (11.5-15.4) L D 09/11/16 04:17 Hct 30.9 % (35.3-44.9) L 09/11/16 04:17 Plt Count 116 K/mcL (140-400) L 09/11/16 04:17 Band Neutrophils % 14.0 % (0-4) H 09/11/16 04:17 Platelet Estimate Decreased (Normal) L 09/11/16 04:17 PT 14.2 Seconds (9.4-12.1) H 09/09/16 22:51 ABG pH 7.22 pH Units (7.32-7.45) L 09/11/16 04:49 ABG pCO2 49 mmHg (35-45) H 09/11/16 04:49 ABG pO2 70 mmHg (85-104) L 09/11/16 04:49 ABG HCO3 20.1 mEQ/L (21-27) L 09/11/16 04:49 ABG O2 Saturation 90 % (95-98) L 09/11/16 04:49 ABG Base Excess -7.7 mEq/L (-2.0 to 3.0) L 09/11/16 04:49 Sodium 125 mEq/L (136-145) L 09/11/16 04:17 Chloride 94 mEq/L (98-109) L 09/11/16 04:17 Carbon Dioxide 15 mEq/L (19-29) L 09/11/16 04:17 BUN 33 mg/dL (7-20) H 09/11/16 04:17 Creatinine 2.61 mg/dL (0.57-1.11) H 09/11/16 04:17 Est GFR ( Amer) 22 (> 60) L 09/11/16 04:17 Est GFR (Non-Af Amer) 18 (> 60) L 09/11/16 04:17 Glucose 283 mg/dL (70-99) H 09/11/16 04:17 POC Glucose 272 (58-89) H 09/11/16 05:42 Calculated Osmolality 278 (280-300) L 09/11/16 04:17 Lactic Acid 5.4 mmol/L (0.5-2.2) H* 09/11/16 03:05 Uric Acid 6.9 mg/dL (2.6-6.0) H 09/11/16 04:17 Calcium 6.3 mg/dL (8.6-10.8) L 09/11/16 04:17 Ionized Calcium 0.81 mmol/L (1.15-1.35) L 09/11/16 04:17 Magnesium 0.9 mg/dL (1.6-2.6) L 09/11/16 04:17 Creatine Kinase 484 Units/L (29-168) H 09/10/16 15:39 Troponin I 0.05 ng/mL (0-0.03) H* 09/10/16 06:14 Serum Total Protein 4.8 g/dL (6.0-8.3) L D 09/10/16 11:15 Albumin 2.3 g/dL (3.5-5.0) L D 09/10/16 11:15 Albumin/Globulin Ratio 0.9 (1.1-2.2) L 09/10/16 11:15 Urine Color Milagros (Yellow) A 09/10/16 01:35 Urine Clarity Turbid (Clear) A 09/10/16 01:35 Urine Protein 100 mg/dL (Neg-Trace) H 09/10/16 01:35 Urine Ketones Trace mg/dL (Negative) H 09/10/16 01:35 Urine Blood Small (Negative) H 09/10/16 01:35 Urine Bilirubin Moderate (Negative) H 09/10/16 01:35 Ur Leukocyte Esterase Large (Negative) H 09/10/16 01:35 Urine Microscopic RBC 3-5 per hpf (0-3) H 09/10/16 01:35 Urine Microscopic WBC TNTC per hpf (0-3) H 09/10/16 01:35 Ur Squamous Epith Cells Many per lpf (None-Few) H 09/10/16 01:35 Urine Bacteria Moderate per hpf (None-Few) H 09/10/16 01:35 Urine Mucus Moderate (Few) H 09/10/16 01:35 Urine Yeast Many per hpf (None Seen) H 09/10/16 01:35 Ur Culture Indicated? YES (NO) A 09/10/16 01:35 Urine Osmolality 292 mOsm/kg (300-1090) L 09/10/16 15:39 U Benzodiazepines Scrn Positive ng/mL (Bauusm=596) H 09/10/16 01:35 MRSA Surveillance Scrn Positive (Negative) A 09/10/16 14:18 - Microbiology Findings Microbiology Findings: Microbiology, Last 48 Hours 09/10/16 14:18 Influenza Types A,B Antigen (SUE) - Final Nasopharyngeal - Clinical Findings Intake & Output: Intake & Output 09/10/16 09/10/16 09/11/16 15:59 23:59 07:59 Intake Total 2909 / 2909 3343 / 3343 3952 / 3952 Output Total 50 / 50 1000 / 1000 350 / 350 Balance 2859 / 2859 2343 / 2343 3602 / 3602 Weight 78.2 kg 85.7 kg - VTE Documentation of Mechanical Device: Graduated compression elastic hosiery Consult Discharge Plan - Plan Referrals: NO,PCP [Non-Partnered Physician] -
[2016-09-11] MEDS: Oseltamivir 6 MG/ML MLS PO SCH (07:47)
[2016-09-11] MEDS: FentaNYL (PF) 1,000 MCG in 0.9 % Sodium Chloride 80 ML IVC SCH (09:03)
--- NOTE | 2016-09-11 09:09 | Nephrology Progress Note ---
Date of Encounter: 09/11/16 Time of Encounter: 06:30 - Assessment and Plan (1) Septic shock Current Visit: Yes Status: Acute Etiology healthcare associated pneumonia and influenza B. Patient presented with tachycardia, tachypnea, lactic acidosis, and hypotension requiring multiple vasopressors. Chest x-ray revealed right middle lobe pneumonia concerning for aspiration. Speaking with family today, they stated that the patient was vomiting and aspirated prior to presentation to the emergency department. Patient does meet criteria for healthcare associated pneumonia as she was hospitalized at the end of July. She continues to require multiple vasopressors along with significant ventilatory support. Blood and urine cultures remain negative. Antibiotics per ICU team. (2) Acute kidney injury Current Visit: Yes Status: Acute Oliguric acute kidney injury in the setting of septic shock and lactic acidosis. Slight improvement in the patient's serum creatinine overnight, but patient is 12L net positive with clinical signs of volume overload. Bicarbonate drip as well as IV fluids have been discontinued and the patient will be started on continuous renal replacement therapy. Right femoral temporary hemodialysis catheter placed under ultrasound guidance at the bedside. Patient's lactic acid climbing, 5.4 today. Continue to monitor closely. (3) HCAP (healthcare-associated pneumonia) Current Visit: Yes Status: Acute Patient with right middle lobe pneumonia concerning for aspiration after she vomited at home. Was hospitalized in the previous 90 days meeting requirements for healthcare associated pneumonia. Continue current antibiotic treatment per ICU team. (4) Acute respiratory failure with hypoxia Current Visit: Yes Status: Acute Patient remains intubated. Vent settings: VC+/400/30/100%/12 Management per ICU team. Initiation of continue renal replacement therapy today. (5) Metabolic acidosis Current Visit: Yes Status: Acute High anion gap metabolic acidosis in the setting of septic shock and lactic acidosis. Continue to trend lactic acid. CRRT initiated. (6) Influenza B Current Visit: Yes Status: Acute Tamiflu given (7) Hypomagnesemia Current Visit: Yes Status: Acute We will continue to monitor electrolytes closely with CRRT. Replete as needed. (8) Hypocalcemia Current Visit: Yes Status: Acute (9) Renal atrophy, right Current Visit: Yes Status: Chronic CT abdomen and pelvis without contrast from May 2016 revealed asymmetric atrophy of the right kidney with cortical defects, and or chronic reflux ischemia or infection. Also noted were multiple calcifications in the right renal parenchyma measuring up to 3 mm as well as a 13 mm calcification in the left lower pole. Retroperitoneal ultrasound revealed an atrophic lobular right kidney with multifocal areas of scarring. There is also increased echogenicity of the right kidney suggestive of medical renal disease. Stable 1.3 cm calcification in the left kidney either parenchymal or caliceal in origin. Subjective Principal diagnosis: Acute Resp Failure with Hypoxia Interval history: Patient seen and examined at the bedside. Patient remained on multiple pressor agents overnight to maintain adequate mean arterial pressure. Patient is 12 L net positive and will be started on Skylar today. Family has been contacted and gets consent for hemodialysis catheter placement and Skylar. Patient remains intubated, sedated, and paralyzed. Objective - Vital Signs Vital signs: Vital Signs Temp Pulse Resp BP Pulse Ox 09/11/16 08:11 30 96 09/11/16 08:00 94 30 103/55 97 09/11/16 07:15 110 09/11/16 07:00 101 30 82/53 95 09/11/16 06:01 30 97 09/11/16 06:00 97 30 103/61 96 09/11/16 05:00 99 30 97/61 97 09/11/16 04:27 97.8 F 09/11/16 04:20 99 09/11/16 04:00 101 30 79/55 98 09/11/16 03:00 102 30 99/61 95 09/11/16 02:17 30 95 09/11/16 02:00 101 30 119/67 94 L 09/11/16 01:00 105 30 115/67 94 L 09/11/16 00:28 30 94 L 09/11/16 00:16 98.9 F 09/11/16 00:00 106 30 100/66 94 L 09/10/16 23:00 107 30 86/65 93 L 09/10/16 22:25 30 100/66 94 L 09/10/16 22:00 109 30 86/70 93 L 09/10/16 21:00 107 30 80/65 92 L 09/10/16 20:53 30 86/65 92 L 09/10/16 20:00 98.2 F 107 30 80/62 92 L 09/10/16 19:00 106 30 91/66 94 L 09/10/16 18:00 106 30 110/63 96 09/10/16 17:20 30 87/55 94 L 09/10/16 17:00 101 30 87/55 95 09/10/16 16:00 107 30 94/59 92 L 09/10/16 15:18 98.6 F 09/10/16 15:00 110 30 80/54 92 L 09/10/16 14:00 113 30 89/55 92 L 09/10/16 13:00 111 30 87/56 88 L 09/10/16 12:00 112 30 103/58 97 09/10/16 11:00 112 30 103/48 94 L 09/10/16 10:00 115 30 110/52 85 L Intake and Output 09/10/16 09/11/16 09/11/16 23:59 07:59 15:59 Intake Total 3343 / 3343 4390 / 4390 635 / 635 Output Total 1000 / 1000 800 / 800 Balance 2343 / 2343 3590 / 3590 635 / 635 Intake: IV Fluids 2343 / 2343 4390 / 4390 635 / 635 0.9 % Sodium Chloride 1, 1554 / 1554 000 ML @ 150 mls/hr IVC . Q6H40M [facility] Rx#:[id number] Atracurium 250 MG In 0.9 24 / 24 135 / 135 % Sodium Chloride 225 ML @ 5 MCG/KG/MIN 23.46 mls/ hr IVC CONT [facility] Rx#: [id number] FentaNYL (PF) 1,000 MCG 48 / 48 3 / 3 In 0.9 % Sodium Chloride 80 ML @ 10 MCG/HR 1 mls/ hr IVC CONT [facility] Rx#: [id number] Levophed 8 MG In Dextrose 36 / 36 5% 250 ML @ 2 MCG/MIN 3. 87 mls/hr IVC .CONT [facility] Rx#:[id number] Levophed 16 MG In 516 / 516 1032 / 1032 Dextrose 5% 500 ML @ 2 MCG/MIN 3.87 mls/hr IVC . CONT [facility] Rx#:[id number] Phenylephrine 50 MG In 0 / 0 Dextrose 5% 250 ML @ 40 MCG/MIN 12.24 mls/hr IVC CONT [facility] Rx#:[id number] Diprivan 1,000 mg In 100 45 / 45 47 / 47 ml @ 5 MCG/KG/MIN 2.381 mls/hr IVC .Q24H [facility] Rx#: [id number] Sodium Bicarbonate 150 1150 / 1150 1150 / 1150 408 / 408 MEQ In Dextrose 5% 1,000 ML @ 150 mls/hr IVC . Q7H40M [facility] Rx#:[id number] Vasostrict 20 UNIT In 0.9 74 / 74 % Sodium Chloride 50 ML @ 0.03 UNITS/MIN 4.59 mls /hr IVC .Q11H7M [facility] Rx#: [id number] Zithromax 500 mg In 250 / 250 Dextrose 5% 250 ML @ 252 mls/hr IVPB Q24H [facility] Rx#: [id number] Calcium Gluconate 2,000 120 / 120 120 / 120 MG In Dextrose 5% 100 ML @ 220 mls/hr IVPB ONCE [facility] Rx#:[id number] Magnesium Sulfate 2 GM In 102 / 102 104 / 104 Dextrose 5% 100 ML @ 100 mls/hr IVPB ONCE ONE Rx# :[id number] Zosyn 3.375 GM In 100 / 100 100 / 100 Dextrose 5% (Minibag+) 100 ML 100 ML @ 25 mls/hr IVPB Q12H [facility] Rx#: [id number] Vancocin 1,000 MG In 250 / 250 Dextrose 5% 250 ML @ 167 mls/hr IVPB ONCE ONE Rx#: [id number] Free Water 1000 / 1000 Output: Catheter 100 / 100 400 / 400 Gastric Drainage 900 / 900 400 / 400 Other: Weight 85.7 kg Blood Glucose* 199 272 Patient Weight 09/11/16 23:59 Weight 85.7 kg - General Appearance Exam: General: Patient is currently intubated, sedated, and paralyzed HEENT: Normocephalic atraumatic, pupils are equal round and reactive to light and accommodation, tympanic membrane is intact, nares is patent, mucous membranes moist, no JVD, trachea is midline Cardiovascular: Tachycardic with regular rhythm without murmur Respiratory: Lungs are diminished bilaterally with trace rhonchi noted Abdomen: Soft, nondistended, positive bowel sounds in all 4 quadrants Extremities: Upper and lower extremity anasarca Neuro: Unable to assess secondary to patient's mental status - Lab 09/11/16 04:17 09/11/16 04:17 Most recent lab results ABG pH 7.22 pH Units (7.32-7.45) L 09/11/16 04:49 ABG pCO2 49 mmHg (35-45) H 09/11/16 04:49 ABG pO2 70 mmHg (85-104) L 09/11/16 04:49 ABG HCO3 20.1 mEQ/L (21-27) L 09/11/16 04:49 ABG O2 Saturation 90 % (95-98) L 09/11/16 04:49 Calcium 6.3 mg/dL (8.6-10.8) L 09/11/16 04:17 Phosphorus 4.2 mg/dL (2.3-4.7) 09/11/16 04:17 Magnesium 0.9 mg/dL (1.6-2.6) L 09/11/16 04:17 Urine Sodium 58.0 mEq/L 09/10/16 15:39 - VTE Documentation of Mechanical Device: Graduated compression elastic hosiery Consult Discharge Plan - Plan Referrals: NO,PCP [Non-Partnered Physician] -
[2016-09-11] MEDS ORDERED: Calcium Gluconate 1,000 MG in D5% in Water 100 ML IVPB PRN (10:35)
[2016-09-11] MEDS ORDERED: Calcium Gluconate 2,000 MG in D5% in Water 100 ML IVPB PRN (10:35)
[2016-09-11] MEDS ORDERED: *HR* Alteplase (Cathflo) 2 MG VIAL IVP PRN (10:35)
[2016-09-11] MEDS ORDERED: *HR* Heparin 5,000 UNIT/ML VIAL IV PRN (10:35)
[2016-09-11] MEDS ORDERED: 0.9 % Sodium Chloride 1,000 ML PRIME SCH (10:35)
--- NOTE | 2016-09-11 10:43 | Nephrology Procedure Note ---
Date of procedure: 09/11/16 Procedure Performed: femoral dialysis catheter Procedure: Procedure Medicine Tech: Pauline Goldberg DO Attending scientific laboratory supervisor: Guillaume Lala DO Consent: Obtained from the patient's power of banking attorney, son Jackson Archuleta Procedure summary: Bedside timeout was performed. The patient was prepped and draped in the usual sterile fashion using chlorhexidine scrub. One percent lidocaine was used to numb the right femoral region. The right femoral vein was accessed under ultrasound guidance using a finder needle and sheath. Venous blood was withdrawn and the sheath was advanced into the vein and the needle was withdrawn. A guidewire was advanced through the sheath. A small incision was made with a 10 blade scalpel and the sheath was exchanged for a dilator over the guidewire until appropriate dilation was obtained. The dilator was removed and a 15-[place] triple lumen temporary hemodialysis catheter was advanced over the guidewire, but unfortunately on the first attempt the guidewire was not able to be removed without excessive force. The guidewire along with the temporary dialysis catheter were removed together and pressure was held on the femoral vein for approximately 10 minutes. During the second attempt, the identical procedure was performed and the triple lumen temporary dialysis catheter was advanced over the guidewire and secured into place with sutures. At time of procedure completion, all ports aspirated and flushed properly. Complications: None Estimated blood loss: Minimal Condition: critical Disposition: ICU
[2016-09-11] MEDS ORDERED: Calcium Chloride 4,000 MG in 0.9 % Sodium Chloride 1,000 ML CRRT SCH (10:45)
[2016-09-11] MEDS ORDERED: PrismaSATE BGK 4/2.5 5,000 ML CRRT SCH ×2 (10:45)
[2016-09-11] MEDS ORDERED: *HR* Dextrose 50 % in Water (Syg) 50 ML SYRINGE IVP PRN (10:49)
[2016-09-11] MEDS ORDERED: Vancomycin 1,250 MG in D5% in Water 250 ML IVPB SCH (11:00)
[2016-09-11] MEDS ORDERED: Vancomycin 1 EACH in EMPTY BAG 1 EACH IVPB SCH (11:00)
[2016-09-11] MEDS ORDERED: Vancomycin 1,000 MG in D5% in Water 250 ML IVPB ONE (12:00)
[2016-09-11] MEDS: Atracurium 250 MG in 0.9 % Sodium Chloride 225 ML IVC SCH ×2 (13:13→14:21)
[2016-09-11] MEDS: Insulin Human Regular 100 UNIT in 0.9 % Sodium Chloride 100 ML IVC SCH ×2 (13:14→13:17)
--- NOTE | 2016-09-11 14:16 | Event Note ---
Date of Encounter: 09/11/16 Time of Encounter: 14:08 Notified by ICU staff that shortly after starting Skylar patients blood pressure drastically dropped and became hypoxic. Vasopressors were increased and patient was manually bagged. Skylar was stopped at that time. Unfortunately , it appears that she will not tolerate CVVHD. Patient is currently DNR CCA. Family discussion continues about plan of care.
[2016-09-11 15:33] LABS: Ionized Calcium 0.86 mmol/L (1.15-1.35)
[2016-09-11 15:34] LABS: Magnesium 1.3 mg/dL (1.6-2.6)
[2016-09-11 16:41] LABS: ABG Base Excess -9.6 mEq/L (-2.0 to 3.0); ABG Oxygen Saturation 62 % (95-98); ABG PCO2 45 mmHg (35-45); ABG PH 7.21 pH Units (7.32-7.45); ABG TCO2 19.4 mEq/L (20-26)
[2016-09-11 16:45] LABS: ABG PO2 40 mmHg (85-104)
[2016-09-11] MEDS ORDERED: Furosemide 40 MG/4 ML VIAL IVP ONE (17:03)
[2016-09-11] MEDS: Lacri-Lube 3.5 GM TUBE BOTH EYES PRN (20:09)
[2016-09-12] MEDS: Vasopressin 20 UNIT in 0.9 % Sodium Chloride 50 ML IVC SCH (00:46)
[2016-09-12] MEDS: Piperacillin/Tazobactam 3.375 GM in D5% in Water (Mini-Bag+) 100 ML IVPB SCH (03:37)
[2016-09-12] MEDS: Lacri-Lube 3.5 GM TUBE BOTH EYES PRN (03:55)
[2016-09-12 04:00] LABS: Nucleated Red Blood Cells 0.4 /100 WBC (0)
[2016-09-12 04:02] LABS: Hematocrit 32.7 % (35.3-44.9); Hemoglobin 10.7 g/dL (11.5-15.4); Mean Corpuscular HGB Conc 32.7 g/dL (31.6-35.5); Mean Corpuscular Hemoglobin 29.2 pg (28.0-33.3); Mean Corpuscular Volume 89.1 fL (83.0-100.0); Mean Platelet Volume 10.4 fL (9.4-12.4); Red Blood Count 3.67 M/mcL (3.82-4.97); Red Cell Distribution Width 13.9 % (11.5-14.5)
[2016-09-12 04:06] LABS: Ionized Calcium 0.93 mmol/L (1.15-1.35); Platelet Count 95 K/mcL (140-400)
[2016-09-12 04:13] LABS: Albumin/Globulin Ratio 0.6 (1.1-2.2); Calcium 7.2 mg/dL (8.6-10.8); Globulin 2.9 g/dL (2.4-3.5); Magnesium 1.8 mg/dL (1.6-2.6); Potassium 4.1 mEq/L (3.5-4.5); Total Protein 4.6 g/dL (6.0-8.3)
[2016-09-12 04:17] LABS: Albumin 1.7 g/dL (3.5-5.0); Bilirubin,Total 0.8 mg/dL (0.2-1.2); Phosphorous 7.8 mg/dL (2.3-4.7)
[2016-09-12 05:05] LABS: Lymphocytes # 0.9 K/mcL (0.6-4.6); Monocytes # 2.6 K/mcL (0.0-1.3); Neutrophils # 18.5 K/mcL (1.6-8.9)
[2016-09-12 05:06] LABS: Burr Cells 2+ (Not Present); Platelet Estimate Decreased (Normal)
[2016-09-12] MEDS: Norepinephrine 16 MG in D5% in Water 500 ML IVC SCH (05:08)
[2016-09-12] MEDS: FentaNYL (PF) 1,000 MCG in 0.9 % Sodium Chloride 80 ML IVC SCH (05:09)
[2016-09-12] MEDS: *HR* Heparin 5,000 UNIT/ML VIAL SQ SCH (05:51)
[2016-09-12] MEDS: Hydrocortisone Sodium Succ 100 MG/2 ML VIAL IVP SCH (05:51)
--- NOTE | 2016-09-12 08:13 | Pulmonology Progress Note ---
Date of Encounter: 09/12/16 Time of Encounter: 08:11 Assessment and Plan (1) Acute respiratory failure with hypoxia Current Visit: Yes Status: Acute Secondary to pneumonia, influenza B infection with possible bacterial infection in setting of history of COPD. Cultures negative to date. VBG results pH 7.05, pC2 60, pO2 89 and Oxyhemoglobin 92.0. Lactic acid of 7.4. Suggestive of inadequate uptake of nutrients despite continued efforts/interventions. Continue zosyn d3. Vancomycin d2 due to MRSA positive screening, awaiting sputum culture results. Patient on ventilator. PEEP of 10, FiO2 at 100%. Continue with stress dose steroids. Will discuss with family to discuss plan of care. (2) Septic shock Current Visit: Yes Status: Acute Continue with pressors to MAP 65 and plan in assessment above. (3) Acute kidney injury Current Visit: Yes Status: Acute Cr of 3.02, urine output at 2049. LIZ likely due to hypoperfusion from septic shock. Fluids held due to volume overload status. Nephrology on board, unable to tolerate dialysis. (4) Acute respiratory distress syndrome Current Visit: Yes Status: Acute (5) Influenza B Current Visit: Yes Status: Acute Continue Tamiflu (6) MRSA (methicillin resistant Staphylococcus aureus) carrier Current Visit: Yes Status: Acute Positive MRSA screening. Continue with Vancomycin until cultures return. To discontinue if cultures return MRSA negative. (7) Altered mental status Current Visit: Yes Status: Acute Secondary to acute respiratory failure and septic shock. Continue per assessments above. Qualifiers: Altered mental status type: unspecified Qualified Code(s): R41.82 - Altered mental status, unspecified (8) Hypocalcemia Current Visit: Yes Status: Acute Ionized calcium at 0.93, monitor and replete as needed. (9) Hypomagnesemia Current Visit: Yes Status: Acute Magnesium at 1.8, replete and monitor as needed. (10) Hyperglycemia Current Visit: Yes Status: Acute Overnight blood sugars dropping. Insulin drip stopped. Hyperglycemia likely secondary to stress dose steroids. Low glucose levels likely secondary to insulin drip and discontinuance f bicarb drip with D5 yesterday morning. Will continue to monitor. (11) DVT prophylaxis Current Visit: Yes Status: Acute heparin for dvt ppx. Subjective Principal diagnosis: Acute Resp Failure, Septic shock, acute renal failure Interval history: Patient intubated and sedated. PEEP 10, FiO2 at 100%. ART line on Left out overnight. 670 mL gastric drainage 2050mL urine output patient was unable to tolerate dialysis, labs reveal significant electrolyte imbalances and fluid overload status on exam. Objective PUL Vital signs: Last Vital Signs Temp 101.1 F H 09/12/16 08:09 Pulse 109 09/12/16 06:02 Resp 30 09/12/16 08:00 BP 116/73 09/12/16 08:00 Pulse Ox 93 L 09/12/16 08:00 General appearance: other (intubated and sedated, no eye movement or extremity movement when prompted.) Eyes: nonicteric Neck: supple Effort: normal Auscultation: bilateral: rales, rhonchi Cardiovascular: regular rate and rhythm Gastrointestinal: hypoactive bowel sounds, soft, non-distended Integumentary: other (mottled appearance on extremities) Extremities: cool, edema, other (pale, pulses very difficult to palpate) Musculoskeletal: no deformities non-focal exam Ventilator Settings Ventilator Settings: Ventilator Settings, Last 8 Hours Ventilator Mode VC+ Ventilator Mode VC+ Ventilator Mode VC+ Ventilator Mode VC+ Ventilator Mode VC+ Ventilator Mode VC+ Ventilator Mode VC+ Ventilator Mode VC+ Ventilator Mode VC+ Ventilator Mode VC+ Ventilator Tidal Volume 400 Setting Ventilator Tidal Volume 400 Setting Ventilator Tidal Volume 400 Setting Ventilator Tidal Volume 400 Setting Ventilator Tidal Volume 400 Setting Ventilator Tidal Volume 400 Setting Ventilator Tidal Volume 400 Setting Ventilator Tidal Volume 400 Setting Ventilator Tidal Volume 400 Setting Ventilator Tidal Volume 400 Setting Ventilator Respiratory Rate 30 Setting Ventilator Respiratory Rate 30 Setting Ventilator Respiratory Rate 30 Setting Ventilator Respiratory Rate 30 Setting Ventilator Respiratory Rate 30 Setting Ventilator Respiratory Rate 30 Setting Ventilator Respiratory Rate 30 Setting Ventilator Respiratory Rate 30 Setting Ventilator Respiratory Rate 30 Setting Ventilator Respiratory Rate 30 Setting Actual Respiratory Rate 30 Actual Respiratory Rate 30 Actual Respiratory Rate 30 Positive End Expiratory 10 Pressure Positive End Expiratory 10 Pressure Positive End Expiratory 10 Pressure Positive End Expiratory 10 Pressure Positive End Expiratory 10 Pressure Positive End Expiratory 10 Pressure Positive End Expiratory 10 Pressure Positive End Expiratory 10 Pressure Positive End Expiratory 10 Pressure Positive End Expiratory 10 Pressure Peak Inspiratory Airway 25 Pressure Peak Inspiratory Airway 24 Pressure Peak Inspiratory Airway 24 Pressure Results - Laboratory Findings CBC and BMP: 09/12/16 03:48 09/12/16 03:48 ABG ABG pH 7.21 pH Units (7.32-7.45) L 09/11/16 12:52 ABG pCO2 45 mmHg (35-45) 09/11/16 12:52 ABG pO2 40 mmHg (85-104) L* 09/11/16 12:52 ABG O2 Saturation 62 % (95-98) L 09/11/16 12:52 PT/INR, D-dimer PT 14.2 Seconds (9.4-12.1) H 09/09/16 22:51 Abnormal lab findings: Abnormal lab results WBC 22.0 K/mcL (4.3-11.1) H D 09/12/16 03:48 RBC 3.67 M/mcL (3.82-4.97) L 09/12/16 03:48 Hgb 10.7 g/dL (11.5-15.4) L 09/12/16 03:48 Hct 32.7 % (35.3-44.9) L 09/12/16 03:48 Plt Count 95 K/mcL (140-400) L 09/12/16 03:48 Band Neutrophils % 6.0 % (0-4) H 09/12/16 03:48 Neutrophils # 18.5 K/mcL (1.6-8.9) H 09/12/16 03:48 Monocytes # 2.6 K/mcL (0.0-1.3) H 09/12/16 03:48 Nucleated RBCs/100 WBC 0.4 /100 WBC (0) H 09/12/16 03:48 Platelet Estimate Decreased (Normal) L 09/12/16 03:48 Immature Plt Fraction 11.0 % (1.1-6.1) H 09/12/16 03:48 [place] Cells 2+ (Not Present) A 09/12/16 03:48 PT 14.2 Seconds (9.4-12.1) H 09/09/16 22:51 ABG pH 7.21 pH Units (7.32-7.45) L 09/11/16 12:52 ABG pO2 40 mmHg (85-104) L* 09/11/16 12:52 ABG HCO3 18.0 mEQ/L (21-27) L 09/11/16 12:52 ABG Total CO2 19.4 mEq/L (20-26) L 09/11/16 12:52 ABG O2 Saturation 62 % (95-98) L 09/11/16 12:52 ABG Base Excess -9.6 mEq/L (-2.0 to 3.0) L 09/11/16 12:52 Sodium 121 mEq/L (136-145) L 09/12/16 03:48 Chloride 90 mEq/L (98-109) L 09/12/16 03:48 Carbon Dioxide 12 mEq/L (19-29) L 09/12/16 03:48 BUN 35 mg/dL (7-20) H 09/12/16 03:48 Creatinine 3.02 mg/dL (0.57-1.11) H 09/12/16 03:48 Est GFR ( Amer) 19 (> 60) L 09/12/16 03:48 Est GFR (Non-Af Amer) 16 (> 60) L 09/12/16 03:48 Glucose 183 mg/dL (70-99) H 09/12/16 03:48 Calculated Osmolality 265 (280-300) L 09/12/16 03:48 Lactic Acid 5.4 mmol/L (0.5-2.2) H* 09/11/16 03:05 Uric Acid 6.9 mg/dL (2.6-6.0) H 09/11/16 04:17 Calcium 7.2 mg/dL (8.6-10.8) L 09/12/16 03:48 Ionized Calcium 0.93 mmol/L (1.15-1.35) L 09/12/16 03:48 Phosphorus 7.8 mg/dL (2.3-4.7) H D 09/12/16 03:48 AST 62 Units/L (5-34) H 09/12/16 03:48 Creatine Kinase 484 Units/L (29-168) H 09/10/16 15:39 Troponin I 0.05 ng/mL (0-0.03) H* 09/10/16 06:14 Serum Total Protein 4.6 g/dL (6.0-8.3) L 09/12/16 03:48 Albumin 1.7 g/dL (3.5-5.0) L D 09/12/16 03:48 Albumin/Globulin Ratio 0.6 (1.1-2.2) L 09/12/16 03:48 Urine Color Milag[place] (Yellow) A 09/10/16 01:35 Urine Clarity Turbid (Clear) A 09/10/16 01:35 Urine Protein 100 mg/dL (Neg-Trace) H 09/10/16 01:35 Urine Ketones Trace mg/dL (Negative) H 09/10/16 01:35 Urine Blood Small (Negative) H 09/10/16 01:35 Urine Bilirubin Moderate (Negative) H 09/10/16 01:35 Ur Leukocyte Esterase Large (Negative) H 09/10/16 01:35 Urine Microscopic RBC 3-5 per hpf (0-3) H 09/10/16 01:35 Urine Microscopic WBC TNTC per hpf (0-3) H 09/10/16 01:35 Ur Squamous Epith Cells Many per lpf (None-Few) H 09/10/16 01:35 Urine Bacteria Moderate per hpf (None-Few) H 09/10/16 01:35 Urine Mucus Moderate (Few) H 09/10/16 01:35 Urine Yeast Many per hpf (None Seen) H 09/10/16 01:35 Ur Culture Indicated? YES (NO) A 09/10/16 01:35 Urine Osmolality 292 mOsm/kg (300-1090) L 09/10/16 15:39 U Benzodiazepines Scrn Positive ng/mL (Nitjld=075) H 09/10/16 01:35 MRSA Surveillance Scrn Positive (Negative) A 09/10/16 14:18 - Microbiology Findings Microbiology Findings: Microbiology, Last 48 Hours 09/11/16 07:40 Sputum Culture - Preliminary Sputum 09/10/16 14:18 Influenza Types A,B Antigen (SUE) - Final Nasopharyngeal - Clinical Findings Intake & Output: Intake & Output 09/11/16 09/12/16 09/12/16 23:59 07:59 15:59 Intake Total 873 / 873 1001 / 1001 Output Total 800 / 800 370 / 370 250 / 250 Balance 73 / 73 631 / 631 -250 / -250 Weight 91.399 kg - VTE Documentation of Mechanical Device: Graduated compression elastic hosiery Consult Discharge Plan - Plan Referrals: NO,PCP [Non-Partnered Physician] -
[2016-09-12] MEDS: Chlorhexidine Rinse 15 ML MOUTHWASH MM SCH (08:45)
[2016-09-12] MEDS: Pantoprazole 40 MG VIAL IVP SCH (08:45)
--- NOTE | 2016-09-12 08:55 | Nephrology Progress Note ---
Date of Encounter: 09/12/16 Time of Encounter: 08:00 - Assessment and Plan (1) Septic shock Current Visit: Yes Status: Acute Etiology healthcare associated pneumonia and influenza B. Patient presented with tachycardia, tachypnea, lactic acidosis, and hypotension requiring multiple vasopressors. Chest x-ray revealed right middle lobe pneumonia concerning for aspiration. Speaking with family, they stated that the patient was vomiting and aspirated prior to presentation to the emergency department. Patient does meet criteria for healthcare associated pneumonia as she was hospitalized at the end of July. She continues to require multiple vasopressors along with significant ventilatory support. Blood and urine cultures remain negative. Antibiotics per ICU team. (2) Acute kidney injury Current Visit: Yes Status: Acute Oliguric acute kidney injury in the setting of septic shock and lactic acidosis. Patient was started on continuous renal replacement therapy yesterday, but unfortunately did not tolerate this secondary to drop in mean arterial pressure as well as hypoxia. Patient is 13L net positive with clinical signs of volume overload. She did respond to a trial dose of Lasix, but unfortunately her serum creatinine, hyponatremia, and acidosis continued to worsen. Patient's mean arterial pressure at this point will not tolerate even gentle diuresis. We will have a discussion with family today about possible withdrawal of care. (3) HCAP (healthcare-associated pneumonia) Current Visit: Yes Status: Acute Patient with right middle lobe pneumonia concerning for aspiration after she vomited at home. Was hospitalized in the previous 90 days meeting requirements for healthcare associated pneumonia. Continue current antibiotic treatment per ICU team. Unfortunately patient has developed adult respiratory distress syndrome and has been very difficult to maintain an oxygen saturation. She remains on full ventilatory support with high PEEP and low tidal volume strategy. (4) Acute respiratory failure with hypoxia Current Visit: Yes Status: Acute Patient remains intubated. Vent settings: VC+/400/30/100%/10 Management per ICU team. ARDSnet protocol. (5) ARDS (adult respiratory distress syndrome) Current Visit: Yes Status: Acute (6) Metabolic acidosis Current Visit: Yes Status: Acute High anion gap metabolic acidosis in the setting of septic shock and lactic acidosis. Unfortunately patient did not tolerate continuous renal replacement therapy. Discussion today with the family about withdrawal of care. (7) Influenza B Current Visit: Yes Status: Acute Tamiflu given (8) Hypomagnesemia Current Visit: Yes Status: Acute Replete as needed. (9) Hypocalcemia Current Visit: Yes Status: Acute (10) Renal atrophy, right Current Visit: Yes Status: Chronic CT abdomen and pelvis without contrast from May 2016 revealed asymmetric atrophy of the right kidney with cortical defects, and or chronic reflux ischemia or infection. Also noted were multiple calcifications in the right renal parenchyma measuring up to 3 mm as well as a 13 mm calcification in the left lower pole. Retroperitoneal ultrasound revealed an atrophic lobular right kidney with multifocal areas of scarring. There is also increased echogenicity of the right kidney suggestive of medical renal disease. Stable 1.3 cm calcification in the left kidney either parenchymal or caliceal in origin. Subjective Principal diagnosis: Acute Resp Failure, Septic shock, acute renal failure Interval history: Patient seen and examined at the bedside. Patient remained on multiple pressor agents overnight to maintain adequate mean arterial pressure. Patient unfortunately did not tolerate continue renal replacement therapy yesterday and was thus discontinued. Patient remains intubated, sedated, and paralyzed. Objective - Vital Signs Vital signs: Vital Signs Temp Pulse Resp BP Pulse Ox 09/12/16 08:26 110 09/12/16 08:09 101.1 F H 09/12/16 08:00 110 30 115/80 94 L 09/12/16 06:17 30 95 09/12/16 06:02 109 30 101/64 95 09/12/16 05:00 109 30 108/59 94 L 09/12/16 04:00 100.2 F H 106 30 112/77 97 09/12/16 03:43 30 97 09/12/16 03:00 105 30 77/57 92 L 09/12/16 02:00 106 30 79/57 92 L 09/12/16 01:00 107 30 82/57 93 L 09/12/16 00:30 107 30 95/60 93 L 09/12/16 00:09 30 94 L 09/12/16 00:00 99.3 F 09/11/16 23:00 111 30 94/59 93 L 09/11/16 22:21 30 95 09/11/16 22:00 109 30 96/57 96 09/11/16 21:00 107 30 105/66 92 L 09/11/16 20:15 97.7 F 106 30 130/67 93 L 09/11/16 19:57 30 106 H 09/11/16 19:00 102 30 128/63 94 L 09/11/16 18:00 97 30 111/57 94 L 09/11/16 17:08 30 96 09/11/16 17:00 92 30 128/61 97 09/11/16 16:00 97 30 118/59 95 09/11/16 15:43 97.4 F L 09/11/16 15:36 30 95 09/11/16 15:00 99 30 105/57 96 09/11/16 14:20 30 95 09/11/16 14:00 94 30 119/64 98 09/11/16 13:29 98 09/11/16 13:00 99 30 143/72 98 09/11/16 11:51 30 88 L 09/11/16 11:29 98.2 F 09/11/16 09:00 98.5 F 93 30 94/55 97 Intake and Output 09/11/16 09/12/16 09/12/16 23:59 07:59 15:59 Intake Total 873 / 873 1001 / 1001 Output Total 800 / 800 370 / 370 250 / 250 Balance 73 / 73 631 / 631 -250 / -250 Intake: IV Fluids 873 / 873 1001 / 1001 FentaNYL (PF) 1,000 MCG 99 / 99 In 0.9 % Sodium Chloride 80 ML @ 10 MCG/HR 1 mls/ hr IVC CONT [facility] Rx#: [id number] Levophed 16 MG In 449 / 449 651 / 651 Dextrose 5% 500 ML @ 2 MCG/MIN 3.87 mls/hr IVC . CONT [facility] Rx#:[id number] Diprivan 1,000 mg In 100 100 / 100 100 / 100 ml @ 5 MCG/KG/MIN 2.381 mls/hr IVC .Q24H [facility] Rx#: [id number] Vasostrict 20 UNIT In 0.9 51 / 51 % Sodium Chloride 50 ML @ 0.03 UNITS/MIN 4.59 mls /hr IVC .Q11H7M [facility] Rx#: [id number] Calcium Gluconate 2,000 120 / 120 MG In Dextrose 5% 100 ML @ 220 mls/hr IVPB [facility] Rx#:[id number] Magnesium Sulfate 2 GM In 104 / 104 Dextrose 5% 100 ML @ 100 mls/hr IVPB [facility] Rx# :[id number] Zosyn 3.375 GM In 100 / 100 100 / 100 Dextrose 5% (Minibag+) 100 ML 100 ML @ 25 mls/hr IVPB Q8H [facility] Rx#: [id number] Output: Catheter 800 / 800 300 / 300 250 / 250 Gastric Drainage 70 / 70 Other: Weight 91.399 kg Blood Glucose* 160 93 66 Patient Weight 09/12/16 23:59 Weight 91.399 kg - General Appearance Exam: General: Patient is intubated, sedated, and paralyzed HEENT: Normocephalic atraumatic, pupils are equal round and reactive to light and accommodation, nares is patent, mucous membranes moist, no JVD, trachea is midline Cardiovascular: Tachycardic with regular rhythm, no murmurs appreciated Respiratory: Lungs are diminished bilaterally with rhonchi noted throughout Abdomen: Soft, nondistended, distant bowel sounds heard Extremities: Significant upper and lower extremity anasarca, distal phalanges with beginning of necrosis left greater than right Neuro: Unable to assess secondary to patient's mental status - Lab 09/12/16 03:48 09/12/16 03:48 Most recent lab results ABG pH 7.21 pH Units (7.32-7.45) L 09/11/16 12:52 ABG pCO2 45 mmHg (35-45) 09/11/16 12:52 ABG pO2 40 mmHg (85-104) L* 09/11/16 12:52 ABG HCO3 18.0 mEQ/L (21-27) L 09/11/16 12:52 ABG O2 Saturation 62 % (95-98) L 09/11/16 12:52 Calcium 7.2 mg/dL (8.6-10.8) L 09/12/16 03:48 Phosphorus 7.8 mg/dL (2.3-4.7) H D 09/12/16 03:48 Magnesium 1.8 mg/dL (1.6-2.6) 09/12/16 03:48 Urine Sodium 58.0 mEq/L 09/10/16 15:39 - VTE Documentation of Mechanical Device: Graduated compression elastic hosiery Consult Discharge Plan - Plan Referrals: NO,PCP [Non-Partnered Physician] -
[2016-09-12] MEDS ORDERED: Oseltamivir Phosphate 30 MG CAPSULE PO SCH (09:00)
[2016-09-12 10:28] LABS: Mixed Venous Blood pCO2 60 mmHg (44-46); Mixed Venous Blood pH 7.05 (7.34-7.36); Mixed Venous Blood pO2 89 mmHg (35-45)
[2016-09-12 10:32] LABS: INR 1.3; Prothrombin Time 13.7 Seconds (9.4-12.1)
[2016-09-12 10:35] LABS: Activated Partial Thrombo Time 46.9 Seconds (26.0-36.0)
[2016-09-12 11:26] VITALS: BP 63/22
--- NOTE | 2016-09-12 11:26 | Event Note ---
Date of Encounter: 09/12/16 Time of Encounter: 11:23 Discussed goals of care with family, including son who is POA. I explained that the patient has continued to decline despite aggressive care. She is beginning to show signs of digital ischema due to hypoperfusion. Care is essentially futile at this point. All family members, including her son/POA, are in agreement to proceed with compassionate extubation and withdrawal of care. Code status changed to DNR-CC. Will withdraw care with additional family members have arrived.
--- NOTE | 2016-09-12 12:02 | Death Note ---
Discharge Sum: Summary - Date and Time Date of admission: 09/10/16 04:32 Date of : 09/12/16 Time of : 11:50 - Summary Details: Causes of : 1. Acute respiratory failure 2. Septic shock 3. Acute renal failure 4. Influenza pneumonia 5. ARDS 66-year-old white female with a medical history significant for COPD, depression , fibromyalgia, and stroke who presented on 09/10/2016 with acute respiratory failure with ARDS and septic shock. Further evaluation revealed influenza B. The patient had severe ARDS and was difficult to oxygenate and ventilate throughout her hospitalization. She also had septic shock with multiorgan system failure including renal failure. She had a very tenuous hemodynamic status throughout her hospitalization and was intolerant of continuous renal replacement therapy. Unfortunately, she continued to decline despite aggressive care. She began to develop signs of digital ischemia related to irreversible shock and hypoperfusion coupled with vasopressor therapy. Multiple goals of care discussions with family resulted in a transition to DNR comfort care on 09/12/2016. The patient underwent compassionate extubation with withdrawal of care and shortly thereafter. Time of : 09/12/2016 at 11:50 AM - Additional Data Attending physician: Brianne Garcia MD Discharge Sum: Diag - PCOD Probable Cause of : Septic shock Discharge Sum: Prov - Provider Primary care physician: Pauline Goldberg, Consults: 09/10/16 04:58 Consult to Critical Care [CONS] Routine Consulting Provider: [facility] [place] Reason for Consult: Acute hypoxic respiratory failure, lobar pneumonia, ventilatort management Call Completed: No 09/10/16 13:31 Consult to Nephrology [CONS] Routine Consulting Provider: Guillaume Lala Reason for Consult: Acute renal failure, acidosis Call Completed: No 09/11/16 08:45 Consult to Director Economic [CONS] Stat Reason for SW Consult: Requiring central line and temporary dialysis. Patient intubated. Need to determine POA 09/11/16 10:54 consult to portrait studio photographer [Consult to Nutrition] [CONS] Routine Comment: Consulting Provider: NUTRITION Reason for Dietary Consult: TF Start and Manage 09/11/16 14:03 Consult to Ethics [CONS] Stat Comment: Reason for Consult: Concern that POA does not have capacity to make appropriate decisions Call Completed: Yes
[2016-09-12] MEDS ORDERED: Aminoglycoside Consult 1 EACH MC ONE (15:14)
== END 2016-09-12 15:15 | disposition expired ==
LOC: EMEROO 22:26 → 2NNU 22:26 → ICNU 09-10 02:02
PROVIDERS: ADMIT Family Medicine; ATTEND Internal Medicine